=== PATIENT | male | born 1965 | race Two or more races ===

== ENCOUNTER 2018-07-06 03:16 | Inpatient (IN) | payer MEDICAID ==
[2018-07-06] VITALS (7 sets, daily range): BP systolic 102–169; BP diastolic 58–90
[~2018-07-06] VITALS: Ht 170.2 cm; Wt 127.2 kg
--- NOTE | 2018-07-06 03:24 | Emergency Room Report ---
History of Present Illness General Chief Complaint: Abdominal Pain Source: Patient Present Illness HPI Is a 52-year-old male with history of cholecystectomy last year. He presents with chief complaint of abdominal pain started yesterday. Worsen this morning. Has nausea and vomiting. No diarrhea. Pain is 9 out of 10. Worse with movement. Better with rest. Vomiting is nonbloody nonbilious. No fever chills. Pain is diffuse in nature and left-sided. Radiate to the back. Nothing made it better. Movement made it worse. No hematuria. Allergies: Coded Allergies: No Known Allergies (Unverified , 07/06/18) Patient History Past Medical History: none, see triage record, old chart reviewed Past Surgical History: joseph Pertinent Family History: none Social History: Denies: smoking Immunizations: other Reviewed Nursing Documentation: PMH: Agreed; PSxH: Agreed Review of Systems Eye: Denies: eye pain, blurred vision ENT: Denies: ear pain, nose congestion, throat swelling Respiratory: Denies: cough, shortness of breath Cardiovascular: Denies: chest pain, palpitations Gastrointestinal: Reports: abdominal pain, nausea, vomiting; Denies: diarrhea Musculoskeletal: Denies: back pain, joint pain Skin: Denies: rash Neurological: Denies: headache, numbness Endocrine: Denies: increased thirst, increased urine Hematologic/Lymphatic: Denies: easy bruising All Other Systems: negative except mentioned in HPI Physical Exam Vital Signs Date Time Temp Pulse Resp B/P (MAP) Pulse Ox O2 Delivery O2 Flow Rate FiO2 07/06/18 03:18 98.4 77 18 169/87 97 Room Air vitals with high blood pressure Sp02 EP Interpretation: reviewed, normal General Appearance: well appearing, no apparent distress, alert Head: normocephalic, atraumatic Eyes: bilateral eye PERRL, bilateral eye EOMI ENT: hearing grossly normal, normal pharynx Neck: full range of motion, supple, no meningismus Respiratory: chest non-tender, lungs clear, normal breath sounds Cardiovascular #1: regular rate, rhythm, no murmur Gastrointestinal: normal bowel sounds, no mass, no organomegaly, no bruit, non- distended, tenderness - Diffuse tenderness, other - Large cholecystectomy scar Musculoskeletal: back normal, gait/station normal, normal range of motion Psychiatric: mood/affect normal Skin: warm/dry Medical Decision Making Diagnostic Impression: Primary Impression: Pancreatitis Qualified Codes: K85.10 - Biliary acute pancreatitis without necrosis or infection Additional Impression: Choledocholithiasis with obstruction Qualified Codes: K80.51 - Calculus of bile duct without cholangitis or cholecystitis with obstruction ER Course Patient presents with abdominal pain and has acute choledocholithiasis with obstruction and acute pancreatitis. Pain is well-controlled. No evidence of necrotizing pancreatitis. No abdominal obstruction or acute abdomen. We'll admit for IV hydration and pain control. I discussed case with Dr. Stevenson who will be admitting for Dr. Dunne. Dr. Milian, surgeon, also consulted. Lab Results Impression Labs with elevated bilirubin, liver enzyme and lipase. CT/MRI/US Diagnostic Results CT/MRI/US Diagnostic Results : Imaging Test Ordered: CT abdomen and pelvis Impression Read by radiologist. Cholecystectomy. Density in the distal common bowel duct suspicious for choledocholithiasis. Last Vital Signs Date Time Temp Pulse Resp B/P (MAP) Pulse Ox O2 Delivery O2 Flow Rate FiO2 07/06/18 03:18 98.4 77 18 169/87 97 Room Air Status: improved Disposition: ADMITTED INPATIENT Condition: Serious Scripts No Active Prescriptions or Reported Meds Elijah Jarrell MD Jul 06, 2018 03:24
[2018-07-06] MEDS ORDERED: Morphine Sulfate 4mg/ml Inj (IV/IM USE ONLY) IVP ONE ×2 (03:30→04:15)
[2018-07-06 03:48] LABS: APPEARANCE,URINE CLEAR; BILIRUBIN, URINE NEGATIVE (NEGATIVE); GLUCOSE, URINE (UA) NEGATIVE (NEGATIVE); KETONES,URINE NEGATIVE (NEGATIVE); LEUKOCYTE ESTERASE ,URINE NEGATIVE (NEGATIVE); NITRITE,URINE NEGATIVE (NEGATIVE); PH,URINE 6 (4.5-8.0); PROTEIN,URINE NEGATIVE (NEGATIVE); UROBILINOGEN,URINE 1 MG/DL (0.0-1.0)
[2018-07-06 03:49] LABS: COLOR,URINE YELLOW
[2018-07-06 03:54] LABS: BASOPHILS % (AUTO) 1.1 % (0.0-2.0); EOSINOPHILS % (AUTO) 0.5 % (0.0-3.0); HEMOGLOBIN 17.6 G/DL (14.2-18.0); LYMPHOCYTES % (AUTO) 9.8 % (20.0-45.0); MEAN CORPUSCULAR VOLUME 91 FL (80-99); MONOCYTES % (AUTO) 4.9 % (1.0-10.0); NEUTROPHILS % (AUTO) 83.7 % (45.0-75.0); PLATELET COUNT 131 K/UL (150-450); RED BLOOD COUNT 5.59 M/UL (4.70-6.10); RED CELL DISTRIBUTION WIDTH 11.7 % (11.6-14.8); WHITE BLOOD COUNT 8.1 K/UL (4.8-10.8)
[2018-07-06 03:59] LABS: ANION GAP 10 mmol/L (5-15); BLOOD UREA NITROGEN 19 mg/dL (7-18); CALCIUM 9.1 MG/DL (8.5-10.1); CARBON DIOXIDE 26 MMOL/L (21-32); CHLORIDE 103 MMOL/L (98-107); CREATININE 1.2 MG/DL (0.55-1.30); POTASSIUM 3.9 MMOL/L (3.5-5.1); SODIUM 139 MMOL/L (136-145)
[2018-07-06 04:09] LABS: ALANINE AMINOTRANSFERASE 498 U/L (12-78); ALBUMIN 3.6 G/DL (3.4-5.0); ALBUMIN/GLOBULIN RATIO 0.7 (1.0-2.7); ALKALINE PHOSPHATASE 274 U/L (46-116); ASPARTATE AMINO TRANSFERASE 311 U/L (15-37); BILIRUBIN,TOTAL 3.3 MG/DL (0.2-1.0)
[2018-07-06 04:13] LABS: BILIRUBIN,DIRECT 2.2 MG/DL (0.0-0.3)
[2018-07-06] MEDS ORDERED: NKM (05:31)
[2018-07-06] MEDS: Morphine Sulfate 4mg/ml Inj (IV/IM USE ONLY) IVP PRN ×2 (06:54→15:06)
[2018-07-06] MEDS: cefTRIAXone 1 GM in D5W 55 ML IVPB SCH (08:55)
[2018-07-06] MEDS ORDERED: Tubing IV Secondary IV ONE (10:34)
--- NOTE | 2018-07-06 11:19 | History and Physical ---
History of Present Illness General Date patient seen: Jul 06, 2018 Time patient seen: 08:52 Reason for Hospitalization: Abdominal Pain Present Illness HPI 52 yo male with h/o cholecystectomy in the past presents with 2 days of worsening abdominal pain. Denies any fevers/chills, admits to nausea but no vomiting or diarrhea/constipation. Patient states he has had a cholecystectomy in the past. states the pain is all over his abdomen. Denies drinking alcohol, smoking, or any drug use. Denies any other medical conditions, denies any home medications Dr. Milian was consulted by ED overnight. Allergies: Coded Allergies: No Known Allergies (Unverified , 07/06/18) Medication History Scheduled No Known Medications* (NKM - No Known Medications*), 0 ., (Reported) Patient History History Provided By: Patient Healthcare decision maker Resuscitation status Full Code Advanced Directive on File Past Medical/Surgical History Past Medical/Surgical History: (1) Hx of cholecystectomy Social History Social History: (1) Non-smoker Review of Systems Constitutional: Reports: weakness; Denies: no symptoms, see HPI, chills, sweats , fever, malaise, other Eye: Denies: no symptoms, see HPI, eye pain, blurred vision, tearing, double vision, nose pain, nose congestion, acuity changes, discharge, other ENT: Denies: no symptoms, see HPI, ear pain, ear discharge, nose pain, nose congestion, throat pain, throat swelling, mouth pain, hearing loss, nasal discharge, other Respiratory: Denies: no symptoms, see HPI, cough, orthopnea, shortness of breath, stridor, wheezing, ADAMS, sputum, other Cardiovascular: Denies: no symptoms, see HPI, chest pain, edema, palpitations, syncope, PND, other Gastrointestinal: Reports: abdominal pain, nausea; Denies: no symptoms, see HPI , constipation, diarrhea, vomiting, melena, hematemesis, other Genitourinary: Denies: no symptoms, see HPI, discharge, dysuria, frequency, hematuria, pain, retention, incontinence, urgency, vag bleed/dc, other Musculoskeletal: Denies: no symptoms, see HPI, back pain, gout, joint pain, joint swelling, muscle pain, muscle stiffness, other Skin: Denies: no symptoms, see HPI, rash, change in color, change in hair/nails , dryness, lesions, other Psychiatric: Denies: no symptoms, see HPI, prior hx, anxiety, depressed feelings, emotional problems, SI, HI, hallucinations, other Neurological: Denies: no symptoms, see HPI, headache, numbness, paresthesia, seizure, tingling, tremors, focal weakness, syncope, dizziness, other Endocrine: Denies: no symptoms, see HPI, excessive sweating, flushing, intolerance to temperature, increased thirst, increased urine, unexplained weight loss, other Hematologic/Lymphatic: Denies: no symptoms, see HPI, anemia, blood clots, easy bleeding, easy bruising, swollen glands, diathesis, other Physical Exam General Appearance: alert, moderate distress HEENT: normocephalic, atraumatic, anicteric, mucous membranes moist, PERRL Neck: non-tender, normal alignment, supple, normal inspection Respiratory/Chest: chest wall non-tender, lungs clear, normal breath sounds, no respiratory distress, no accessory muscle use Cardiovascular/Chest: normal peripheral pulses, normal rate, regular rhythm Abdomen: normal bowel sounds, soft, tender - diffuse TTP Extremities: normal range of motion, non-tender, normal inspection, no calf tenderness, normal capillary refill Skin Exam: normal pigmentation, warm/dry Neurologic: wax pattern coater II-XII grossly normal, no motor/sensory deficits, alert, oriented x 3, responsive, normal mood/affect Last 24 Hour Vital Signs Date Time Temp Pulse Resp B/P (MAP) Pulse Ox O2 Delivery O2 Flow Rate FiO2 07/06/18 08:00 100.7 93 27 130/80 (97) 96 07/06/18 08:00 Room Air 07/06/18 05:33 Room Air 07/06/18 05:30 100.0 80 20 156/90 (112) 96 07/06/18 05:23 98.1 78 18 141/58 99 Room Air 78 07/06/18 05:21 98.2 18 141/58 99 Room Air 07/06/18 04:11 98.4 07/06/18 04:05 98.4 07/06/18 03:35 77 18 Room Air 99 07/06/18 03:35 98.4 18 169/87 99 Room Air 07/06/18 03:18 98.4 77 18 169/87 97 Room Air Intake and Output 07/05/18 07/06/18 19:00 07:00 Intake Total 2000 ml Balance 2000 ml Intake IV Total 2000 ml # Voids 1 Laboratory Tests Test 07/06/18 03:40 White Blood Count 8.1 K/UL (4.8-10.8) Red Blood Count 5.59 M/UL (4.70-6.10) Hemoglobin 17.6 G/DL (14.2-18.0) Hematocrit 51.0 % (42.0-52.0) Mean Corpuscular Volume 91 FL (80-99) Mean Corpuscular Hemoglobin 31.4 PG (27.0-31.0) H Mean Corpuscular Hemoglobin Concent 34.4 G/DL (32.0-36.0) Red Cell Distribution Width 11.7 % (11.6-14.8) Platelet Count 131 K/UL (150-450) L Mean Platelet Volume 9.3 FL (6.5-10.1) Neutrophils (%) (Auto) 83.7 % (45.0-75.0) H Lymphocytes (%) (Auto) 9.8 % (20.0-45.0) L Monocytes (%) (Auto) 4.9 % (1.0-10.0) Eosinophils (%) (Auto) 0.5 % (0.0-3.0) Basophils (%) (Auto) 1.1 % (0.0-2.0) Urine Color Yellow Urine Appearance Clear Urine pH 6 (4.5-8.0) Urine Specific [place] 1.010 (1.005-1.035) Urine Protein Negative (NEGATIVE) Urine Glucose (UA) Negative (NEGATIVE) Urine Ketones Negative (NEGATIVE) Urine Blood Negative (NEGATIVE) Urine Nitrite Negative (NEGATIVE) Urine Bilirubin Negative (NEGATIVE) Urine Urobilinogen 1 MG/DL (0.0-1.0) H Urine Leukocyte Esterase Negative (NEGATIVE) Sodium Level 139 MMOL/L (136-145) Potassium Level 3.9 MMOL/L (3.5-5.1) Chloride Level 103 MMOL/L (98-107) Carbon Dioxide Level 26 MMOL/L (21-32) Anion Gap 10 mmol/L (5-15) Blood Urea Nitrogen 19 mg/dL (7-18) H Creatinine 1.2 MG/DL (0.55-1.30) Estimat Glomerular Filtration Rate > 60 mL/min (>60) Glucose Level 97 MG/DL (74-106) Calcium Level 9.1 MG/DL (8.5-10.1) Total Bilirubin 3.3 MG/DL (0.2-1.0) H Direct Bilirubin 2.2 MG/DL (0.0-0.3) H Aspartate Amino Transf (AST/SGOT) 311 U/L (15-37) H Alanine Aminotransferase (ALT/SGPT) 498 U/L (12-78) H Alkaline Phosphatase 274 U/L (46-116) H Total Protein 8.6 G/DL (6.4-8.2) H Albumin 3.6 G/DL (3.4-5.0) Globulin 5.0 g/dL Albumin/Globulin Ratio 0.7 (1.0-2.7) L Lipase 7621 U/L (73-393) H Height (Feet): 5 Height (Inches): 7.00 Weight (Pounds): 286 Medications Current Medications Medications (Trade) Dose Ordered Sig/Marcel Route PRN Reason Start Time Stop Time Status Last Admin Dose Admin Ceftriaxone Sodium 1 gm/ Dextrose 55 ml @ 110 mls/hr Q24H IVPB 07/06/18 09:00 07/13/18 08:59 07/06/18 08:55 Morphine Sulfate (Morphine Sulfate) 2 mg Q6H PRN IVP Moderate Pain (Pain Scale 4-6) 07/06/18 05:45 07/13/18 05:44 Morphine Sulfate (Morphine Sulfate) 4 mg Q6H PRN IVP Severe Pain (Pain Scale 7-10) 07/06/18 05:45 07/13/18 05:44 07/06/18 06:54 Ondansetron HCl (Zofran) 4 mg Q6H PRN IVP Nausea & Vomiting 07/06/18 05:45 08/05/18 05:44 Sodium Chloride 1,000 ml @ 125 mls/hr Q8H IVLG 07/06/18 06:39 08/05/18 06:38 07/06/18 06:06 Assessment/Plan Problem List: (1) Intractable abdominal pain Assessment & Plan: due to obstructive pancreatitis CT imaging done, Density in the distal common bowel duct suspicious for choledocholithiasis. Dr. Milian with surgery consulted by ED, following, appreciate recs cont to monitor cmp pain control abx cftx ICD Codes: R10.9 - Unspecified abdominal pain SNOMED: 82600346, 122402662 (2) Pancreatitis Assessment & Plan: due to above cbd obstruction surgery following management per above ICD Codes: K85.90 - Acute pancreatitis without necrosis or infection, unspecified SNOMED: 95741262 Qualifiers: Qualified Codes: K85.10 - Biliary acute pancreatitis without necrosis or infection (3) Transaminitis Assessment & Plan: due to above ICD Codes: R74.0 - Nonspecific elevation of levels of transaminase and lactic acid dehydrogenase [LDH] SNOMED: 046140897, 121369525 (4) Choledocholithiasis with obstruction Assessment & Plan: surg consulted appreciate recs abx pain control npo ICD Codes: K80.51 - Calculus of bile duct without cholangitis or cholecystitis with obstruction SNOMED: 0847829 Qualifiers: Qualified Codes: K80.51 - Calculus of bile duct without cholangitis or cholecystitis with obstruction (5) Hx of cholecystectomy ICD Codes: Z90.49 - Acquired absence of other specified parts of digestive tract SNOMED: 03090755, 698912936 Status: stable Assessment/Plan ppx: scd diet: npo I have spent over 79 minutes regarding patient care and counseling and 35 minutes of face to face time with the patient. Gerri Cardenas MD Jul 06, 2018 11:19
--- NOTE | 2018-07-06 12:18 | Diagnostic Imaging Report ---
Indication: Right flank pain for 3 hours Technique: Spiral acquisitions obtained through the abdomen and pelvis. No oral or IV contrast utilized, per urinary stone protocol. Multiplanar reconstructions were generated. Total dose length product 1080 mGycm. CTDIvol(s) 19 mGy. Dose reduction achieved using automated exposure control Comparison: none Findings: Questionable tiny calyceal calculus versus artifact is seen expected region of a right upper pole renal calyx. No renal or ureteral calculi otherwise. No hydronephrosis or hydroureter. Lack of IV contrast limits assessment of the renal parenchyma. Tiny hyperdense subcentimeter lesion is seen at the left upper pole periphery. No other evidence of renal mass or cyst demonstrated. Lack of IV contrast limits assessment of the other solid organs. The gallbladder is absent, presumably postsurgically. There is mild dilatation of the extrahepatic bile ducts, common bile duct measuring up to 10 mm diameter. 2 calculi are seen in the downstream common bile duct at the level of the ampulla, each measuring about 8 mm in diameter. No intrahepatic biliary ductal dilatation. No focal liver lesion demonstrated. There are borderline enlarged peripancreatic lymph nodes, measuring up to 2.6 cm long axis dimension. The pancreas itself, spleen, adrenals are all unremarkable. No retroperitoneal or mesenteric mass or adenopathy. No pelvic mass or adenopathy. The appendix is normal. There are questionably small colonic diverticula. No evidence of diverticulitis. No small bowel distention. No free or loculated intraperitoneal gas or fluid is demonstrated. There is a borderline broad-based hernia in the right upper quadrant at the site of what was probably a laparoscopy port. Distal esophagus, stomach, duodenum are unremarkable. The included lung bases demonstrate groundglass opacity probably representing compressive atelectatic change, mild congestive change, or combination of both. The heart is borderline enlarged. The bones demonstrate degenerative spondylosis changes Impression: Evidence of choledocholithiasis with mild extrahepatic biliary ductal dilatation Prior cholecystectomy Borderline peripancreatic lymphadenopathy, nonspecific as regards etiology Basilar pulmonary parenchymal groundglass opacity, likely combination of compressive atelectatic changes and mild congestion Borderline cardiomegaly Negative for evidence of urinary stone disease or obstructive uropathy Tiny hyperdense subcentimeter left upper pole periphery lesion is too small to characterize, but suspect represents a proteinaceous cysts. No further follow-up necessary This agrees with the preliminary interpretation provided overnight by [facility] teleradiology service. The CT scanner at [facility] is accredited by the [employer] and the scans are performed using protocols designed to limit radiation exposure to as low as reasonably achievable to attain images of sufficient resolution adequate for diagnostic evaluation.
--- NOTE | 2018-07-06 12:29 | Consultation ---
Consult Note Consult Note HEMATOLOGY-ONCOLOGY CONSULTATION REFERRING MD: Rajwinder Dunne REASON FOR CONSULT: Thrombocytopenia DATE OF CONSULT: 07/06/2018 HPI: 52 yo male with h/o cholecystectomy in the past presents with 2 days of worsening abdominal pain. Denies any fevers/chills, admits to nausea but no vomiting or diarrhea/constipation. Patient states he has had a cholecystectomy in the past. states the pain is all over his abdomen. Denies drinking alcohol, smoking, or any drug use. Denies any other medical conditions, denies any home medications Dr. Milian was consulted by ED overnight. Hematology services consulted for the evaluation of thrombocytopenia. Labs have been reviewed. Serology and US abd ordered. Allergies: Coded Allergies: No Known Allergies (Unverified , 07/06/18) Medication History Scheduled No Known Medications* (NKM - No Known Medications*), 0 ., (Reported) Patient History History Provided By: Patient Healthcare decision maker Resuscitation status Full Code Advanced Directive on File Past Medical/Surgical History Past Medical/Surgical History: (1) Hx of cholecystectomy Social History Social History: (1) Non-smoker Review of Systems Constitutional: Reports: weakness; Denies: no symptoms, see HPI, chills, sweats , fever, malaise, other Eye: Denies: no symptoms, see HPI, eye pain, blurred vision, tearing, double vision, nose pain, nose congestion, acuity changes, discharge, other ENT: Denies: no symptoms, see HPI, ear pain, ear discharge, nose pain, nose congestion, throat pain, throat swelling, mouth pain, hearing loss, nasal discharge, other Respiratory: Denies: no symptoms, see HPI, cough, orthopnea, shortness of breath, stridor, wheezing, ADAMS, sputum, other Cardiovascular: Denies: no symptoms, see HPI, chest pain, edema, palpitations, syncope, PND, other Gastrointestinal: Reports: abdominal pain, nausea; Denies: no symptoms, see HPI , constipation, diarrhea, vomiting, melena, hematemesis, other Genitourinary: Denies: no symptoms, see HPI, discharge, dysuria, frequency, hematuria, pain, retention, incontinence, urgency, vag bleed/dc, other Musculoskeletal: Denies: no symptoms, see HPI, back pain, gout, joint pain, joint swelling, muscle pain, muscle stiffness, other Skin: Denies: no symptoms, see HPI, rash, change in color, change in hair/nails , dryness, lesions, other Psychiatric: Denies: no symptoms, see HPI, prior hx, anxiety, depressed feelings, emotional problems, SI, HI, hallucinations, other Neurological: Denies: no symptoms, see HPI, headache, numbness, paresthesia, seizure, tingling, tremors, focal weakness, syncope, dizziness, other Endocrine: Denies: no symptoms, see HPI, excessive sweating, flushing, intolerance to temperature, increased thirst, increased urine, unexplained weight loss, other Hematologic/Lymphatic: Denies: no symptoms, see HPI, anemia, blood clots, easy bleeding, easy bruising, swollen glands, diathesis, other Physical Exam General Appearance: alert, moderate distress HEENT: normocephalic, atraumatic, anicteric, mucous membranes moist, PERRL Neck: non-tender, normal alignment, supple, normal inspection Respiratory/Chest: chest wall non-tender, lungs clear, normal breath sounds, no respiratory distress, no accessory muscle use Cardiovascular/Chest: normal peripheral pulses, normal rate, regular rhythm Abdomen: normal bowel sounds, soft, tender - diffuse TTP Extremities: normal range of motion, non-tender, normal inspection, no calf tenderness, normal capillary refill Skin Exam: normal pigmentation, warm/dry Neurologic: continuous pillowcase cutter II-XII grossly normal, no motor/sensory deficits, alert, oriented x 3, responsive, normal mood/affect Last 24 Hour Vital Signs Date Time Temp Pulse Resp B/P (MAP) Pulse Ox O2 Delivery O2 Flow Rate FiO2 07/06/18 08:00 100.7 93 27 130/80 (97) 96 07/06/18 08:00 Room Air 07/06/18 05:33 Room Air 07/06/18 05:30 100.0 80 20 156/90 (112) 96 07/06/18 05:23 98.1 78 18 141/58 99 Room Air 78 07/06/18 05:21 98.2 18 141/58 99 Room Air 07/06/18 04:11 98.4 07/06/18 04:05 98.4 07/06/18 03:35 77 18 Room Air 99 07/06/18 03:35 98.4 18 169/87 99 Room Air 07/06/18 03:18 98.4 77 18 169/87 97 Room Air Intake and Output 07/05/18 07/06/18 19:00 07:00 Intake Total 2000 ml Balance 2000 ml Intake IV Total 2000 ml # Voids 1 Laboratory Tests Test 07/06/18 03:40 White Blood Count 8.1 K/UL (4.8-10.8) Red Blood Count 5.59 M/UL (4.70-6.10) Hemoglobin 17.6 G/DL (14.2-18.0) Hematocrit 51.0 % (42.0-52.0) Mean Corpuscular Volume 91 FL (80-99) Mean Corpuscular Hemoglobin 31.4 PG (27.0-31.0) H Mean Corpuscular Hemoglobin Concent 34.4 G/DL (32.0-36.0) Red Cell Distribution Width 11.7 % (11.6-14.8) Platelet Count 131 K/UL (150-450) L Mean Platelet Volume 9.3 FL (6.5-10.1) Neutrophils (%) (Auto) 83.7 % (45.0-75.0) H Lymphocytes (%) (Auto) 9.8 % (20.0-45.0) L Monocytes (%) (Auto) 4.9 % (1.0-10.0) Eosinophils (%) (Auto) 0.5 % (0.0-3.0) Basophils (%) (Auto) 1.1 % (0.0-2.0) Urine Color Yellow Urine Appearance Clear Urine pH 6 (4.5-8.0) Urine Specific [place] 1.010 (1.005-1.035) Urine Protein Negative (NEGATIVE) Urine Glucose (UA) Negative (NEGATIVE) Urine Ketones Negative (NEGATIVE) Urine Blood Negative (NEGATIVE) Urine Nitrite Negative (NEGATIVE) Urine Bilirubin Negative (NEGATIVE) Urine Urobilinogen 1 MG/DL (0.0-1.0) H Urine Leukocyte Esterase Negative (NEGATIVE) Sodium Level 139 MMOL/L (136-145) Potassium Level 3.9 MMOL/L (3.5-5.1) Chloride Level 103 MMOL/L (98-107) Carbon Dioxide Level 26 MMOL/L (21-32) Anion Gap 10 mmol/L (5-15) Blood Urea Nitrogen 19 mg/dL (7-18) H Creatinine 1.2 MG/DL (0.55-1.30) Estimat Glomerular Filtration Rate > 60 mL/min (>60) Glucose Level 97 MG/DL (74-106) Calcium Level 9.1 MG/DL (8.5-10.1) Total Bilirubin 3.3 MG/DL (0.2-1.0) H Direct Bilirubin 2.2 MG/DL (0.0-0.3) H Aspartate Amino Transf (AST/SGOT) 311 U/L (15-37) H Alanine Aminotransferase (ALT/SGPT) 498 U/L (12-78) H Alkaline Phosphatase 274 U/L (46-116) H Total Protein 8.6 G/DL (6.4-8.2) H Albumin 3.6 G/DL (3.4-5.0) Globulin 5.0 g/dL Albumin/Globulin Ratio 0.7 (1.0-2.7) L Lipase 7621 U/L (73-393) H Height (Feet): 5 Height (Inches): 7.00 Weight (Pounds): 286 Medications Current Medications Medications (Trade) Dose Ordered Sig/Marcel Route PRN Reason Start Time Stop Time Status Last Admin Dose Admin Ceftriaxone Sodium 1 gm/ Dextrose 55 ml @ 110 mls/hr Q24H IVPB 07/06/18 09:00 07/13/18 08:59 07/06/18 08:55 Morphine Sulfate (Morphine Sulfate) 2 mg Q6H PRN IVP Moderate Pain (Pain Scale 4-6) 07/06/18 05:45 07/13/18 05:44 Morphine Sulfate (Morphine Sulfate) 4 mg Q6H PRN IVP Severe Pain (Pain Scale 7-10) 07/06/18 05:45 07/13/18 05:44 07/06/18 06:54 Ondansetron HCl (Zofran) 4 mg Q6H PRN IVP Nausea & Vomiting 07/06/18 05:45 08/05/18 05:44 Sodium Chloride 1,000 ml @ 125 mls/hr Q8H IVLG 07/06/18 06:39 08/05/18 06:38 07/06/18 06:06 ASSESSMENT AND RECOMMENDATIONS # Thrombocytopenia. Potential causes multifactorial, evaluate liver and viral etiologies to begin. Could also be related to underlying meds pt has received. --> Peripheral smear ordered to evaluate for blasts/schistocytes --> Hep panel and HIV ordered --> US abd to evaluate for cirrhosis and hsm ordered --> Meds have been reviewed --> Ok for ppx if plt count >50k with either heparin or lovenox --> Transfuse if plt <20k with fever, or if plt ,10k without fever. # Abd pain. Due to obstructive pancreatitis --> CT imaging done, Density in the distal common bowel duct suspicious for choledocholithiasis. --> Dr. Milian with surgery consulted by ED, following, appreciate recs --> cont to monitor cmp --> pain control # Pancreatitis. Due to above cbd obstruction --> surgery following --> management per above # Transaminitis. Due to above Calculus of bile duct without cholangitis or cholecystitis with obstruction # H/O cholecystectomy. GREATLY APPRECIATE CONSULTATION. Santy Chakraborty MD Jul 06, 2018 12:28
--- NOTE | 2018-07-06 14:09 | Diagnostic Imaging Report ---
Indication: Abdominal pain, history of cholecystectomy, abnormal liver function tests, abnormal lipase Technique: Peres-scale and duplex images of the upper abdomen were obtained Comparison: Reference made to abdomen pelvis CT of earlier the same day Findings: Exam is limited by patient body habitus and overlying bowel gas Gallbladder is surgically absent. Common bile duct measures 4 mm in diameter. No intrahepatic biliary ductal dilatation. Liver demonstrates diffusely increased echogenicity, consistent with diffuse hepatocellular disease, most likely fatty change no focal abnormality. No surface nodularity. Portal vein and hepatic veins are patent. Pancreas is unremarkable. Spleen is unremarkable. Left kidney measures 12.1 cm in length. Right kidney measures 12.7 cm length. Both kidneys demonstrate normal echogenicity. There is no hydronephrosis. No focal abnormality . Non-aneurysmal abdominal aorta . Impression: Surgically absent gallbladder Negative for dilated ducts. Note that biliary ductal dilatation described on recent CT scan is not evident sonographically Somewhat limited exam, as described Liver demonstrates diffusely increased echogenicity, consistent with diffuse hepatocellular disease, most likely fatty change.
--- NOTE | 2018-07-06 14:16 | Consultation ---
History of Present Illness General Date patient seen: Jul 06, 2018 Chief Complaint: Abdominal Pain Present Illness HPI 52 yo male with history of cholecystitis s/p cholecystectomy in the past presents with 2 days of worsening abdominal pain. Denies any fevers/chills, admits to nausea but no vomiting or diarrhea/constipation. Patient states he has had a cholecystectomy in the past. states the pain is all over his abdomen. Denies drinking alcohol, smoking, or any drug use. Denies any other medical conditions, denies any home medications. CT with possible CBD stone. labs with elevated LFTs concerning for choledocholithiasis. lipase elevated. Surgery called to evaluate. patient seen, chart reviewed, patient examined. Allergies: Coded Allergies: No Known Allergies (Unverified , 07/06/18) Medication History Scheduled No Known Medications* (NKM - No Known Medications*), 0 ., (Reported) Patient History History Provided By: Patient, Medical Record, PMD Healthcare decision maker Resuscitation status Full Code Advanced Directive on File Past Medical/Surgical History Past Medical/Surgical History: (1) Pancreatitis (2) Choledocholithiasis with obstruction (3) Transaminitis (4) Intractable abdominal pain Review of Systems All Other Systems: negative except mentioned in HPI Physical Exam General Appearance: no apparent distress, alert Lines, tubes and drains: peripheral HEENT: normocephalic, atraumatic, mucous membranes moist Neck: normal inspection Respiratory/Chest: normal breath sounds, no respiratory distress Cardiovascular/Chest: normal rate, regular rhythm Abdomen: normal bowel sounds, soft, no organomegaly, no mass, distended, tender Extremities: normal inspection, other Skin Exam: warm/dry Neurologic: alert, oriented x 3 Last 24 Hour Vital Signs Date Time Temp Pulse Resp B/P (MAP) Pulse Ox O2 Delivery O2 Flow Rate FiO2 07/06/18 12:00 99.5 89 19 114/70 (85) 94 07/06/18 08:00 100.7 93 27 130/80 (97) 96 07/06/18 08:00 Room Air 07/06/18 05:33 Room Air 07/06/18 05:30 100.0 80 20 156/90 (112) 96 07/06/18 05:23 98.1 78 18 141/58 99 Room Air 78 07/06/18 05:21 98.2 18 141/58 99 Room Air 07/06/18 04:11 98.4 07/06/18 04:05 98.4 07/06/18 03:35 77 18 Room Air 99 07/06/18 03:35 98.4 99 Room Air 07/06/18 03:18 98.4 77 18 97 Room Air Intake and Output 07/05/18 07/06/18 19:00 07:00 Intake Total 2000 ml Balance 2000 ml Intake IV Total 2000 ml # Voids 1 Laboratory Tests Test 07/06/18 03:40 White Blood Count 8.1 K/UL (4.8-10.8) Red Blood Count 5.59 M/UL (4.70-6.10) Hemoglobin 17.6 G/DL (14.2-18.0) Hematocrit 51.0 % (42.0-52.0) Mean Corpuscular Volume 91 FL (80-99) Mean Corpuscular Hemoglobin 31.4 PG (27.0-31.0) H Mean Corpuscular Hemoglobin Concent 34.4 G/DL (32.0-36.0) Red Cell Distribution Width 11.7 % (11.6-14.8) Platelet Count 131 K/UL (150-450) L Mean Platelet Volume 9.3 FL (6.5-10.1) Neutrophils (%) (Auto) 83.7 % (45.0-75.0) H Lymphocytes (%) (Auto) 9.8 % (20.0-45.0) L Monocytes (%) (Auto) 4.9 % (1.0-10.0) Eosinophils (%) (Auto) 0.5 % (0.0-3.0) Basophils (%) (Auto) 1.1 % (0.0-2.0) Urine Color Yellow Urine Appearance Clear Urine pH 6 (4.5-8.0) Urine Specific [place] 1.010 (1.005-1.035) Urine Protein Negative (NEGATIVE) Urine Glucose (UA) Negative (NEGATIVE) Urine Ketones Negative (NEGATIVE) Urine Blood Negative (NEGATIVE) Urine Nitrite Negative (NEGATIVE) Urine Bilirubin Negative (NEGATIVE) Urine Urobilinogen 1 MG/DL (0.0-1.0) H Urine Leukocyte Esterase Negative (NEGATIVE) Sodium Level 139 MMOL/L (136-145) Potassium Level 3.9 MMOL/L (3.5-5.1) Chloride Level 103 MMOL/L (98-107) Carbon Dioxide Level 26 MMOL/L (21-32) Anion Gap 10 mmol/L (5-15) Blood Urea Nitrogen 19 mg/dL (7-18) H Creatinine 1.2 MG/DL (0.55-1.30) Estimat Glomerular Filtration Rate > 60 mL/min (>60) Glucose Level 97 MG/DL (74-106) Calcium Level 9.1 MG/DL (8.5-10.1) Total Bilirubin 3.3 MG/DL (0.2-1.0) H Direct Bilirubin 2.2 MG/DL (0.0-0.3) H Aspartate Amino Transf (AST/SGOT) 311 U/L (15-37) H Alanine Aminotransferase (ALT/SGPT) 498 U/L (12-78) H Alkaline Phosphatase 274 U/L (46-116) H Total Protein 8.6 G/DL (6.4-8.2) H Albumin 3.6 G/DL (3.4-5.0) Globulin 5.0 g/dL Albumin/Globulin Ratio 0.7 (1.0-2.7) L Lipase 7621 U/L (73-393) H Height (Feet): 5 Height (Inches): 7.00 Weight (Pounds): 286 Medications Current Medications Medications (Trade) Dose Ordered Sig/Marcel Route PRN Reason Start Time Stop Time Status Last Admin Dose Admin Ceftriaxone Sodium 1 gm/ Dextrose 55 ml @ 110 mls/hr Q24H IVPB 07/06/18 09:00 07/13/18 08:59 07/06/18 08:55 Morphine Sulfate (Morphine Sulfate) 2 mg Q6H PRN IVP Moderate Pain (Pain Scale 4-6) 07/06/18 05:45 07/13/18 05:44 Morphine Sulfate (Morphine Sulfate) 4 mg Q6H PRN IVP Severe Pain (Pain Scale 7-10) 07/06/18 05:45 07/13/18 05:44 07/06/18 06:54 Ondansetron HCl (Zofran) 4 mg Q6H PRN IVP Nausea & Vomiting 07/06/18 05:45 08/05/18 05:44 Sodium Chloride 1,000 ml @ 125 mls/hr Q8H IVLG 07/06/18 06:39 08/05/18 06:38 07/06/18 06:06 Assessment/Plan Problem List: (1) Pancreatitis Assessment & Plan: likely related to possible cbd stone possible EtOH trend labs follow clinically ICD Codes: K85.90 - Acute pancreatitis without necrosis or infection, unspecified SNOMED: 96798089 Qualifiers: Qualified Codes: K85.10 - Biliary acute pancreatitis without necrosis or infection (2) Intractable abdominal pain Assessment & Plan: likely pancreatitis see above ICD Codes: R10.9 - Unspecified abdominal pain SNOMED: 78452061, 426194114 (3) Choledocholithiasis with obstruction Assessment & Plan: MRCP ordered pending results GI consult trend labs thanks. will follow with recs ICD Codes: K80.51 - Calculus of bile duct without cholangitis or cholecystitis with obstruction SNOMED: 4056467 Qualifiers: Qualified Codes: K80.51 - Calculus of bile duct without cholangitis or cholecystitis with obstruction Status: stable Khai Milian Jul 06, 2018 14:16
--- NOTE | 2018-07-06 16:17 | Diagnostic Imaging Report ---
Indication: Abdominal pain, choledocholithiasis on recent CT scan Technique: Coronal and axial single shot fast spin-echo breath-hold, axial T2 FRFSE, 2-D thick slab MRCP, AXIAL 2-D FIESTA fat saturated, axial 3-D dual echo breath-hold, water weighted axial LAVA FLEX, revealed 3-D MRCP images were obtained of the abdomen. MIP reconstructions were generated of the bile ducts Comparison: Reference made to abdomen and pelvic CT and abdomen ultrasound of earlier the same day Findings: The gallbladder is surgically absent polygonal 8mm filling defect is seen in the distal common bile duct lumen. There is also questionably a filling defect protruding into the duodenal lumen at the level of the ampulla, which measures 6 mm in diameter. Both of these correspond in size and location to the abnormality described on recent CT scan. These are visible as high signal foci on the LAVA FLEX images The common bile duct and common hepatic duct are dilated, measuring up to 12 mm in diameter. There is mild central intrahepatic biliary ductal dilatation. There is questionably narrowing of the origins of the right and left lobe intrahepatic ducts, however. The liver is unremarkable. The pancreas is unremarkable. Peripancreatic lymphadenopathy described on recent CT is more apparent on that exam. The spleen, adrenals, kidneys are unremarkable. Limited imaging of the pelvis is unremarkable. There are degenerative spondylosis changes. Impression: Positive for choledocholithiasis, with an 8 mm calculus within the distal common bile duct lumen, and a second likely impacted at the ampulla, protruding into the duodenal lumen. Dilated extrahepatic and central intrahepatic ducts, presumed secondary to the above Apparent narrowing of the origins of the right and left intrahepatic ducts. Suspect that this is just failure to dilate, but strictures are not excludable, and follow-up imaging after decompression of the common bile duct should be considered
[2018-07-07] VITALS: BP 100/67
[2018-07-07 04:00] VITALS: BP 112/60
[2018-07-07 07:46] LABS: BASOPHILS % (AUTO) 0.5 % (0.0-2.0); EOSINOPHILS % (AUTO) 0.6 % (0.0-3.0); HEMATOCRIT 42.7 % (42.0-52.0); HEMOGLOBIN 15.1 G/DL (14.2-18.0); LYMPHOCYTES % (AUTO) 9.6 % (20.0-45.0); MEAN CORPUSCULAR VOLUME 92 FL (80-99); MONOCYTES % (AUTO) 10.2 % (1.0-10.0); NEUTROPHILS % (AUTO) 79.1 % (45.0-75.0); PLATELET COUNT 111 K/UL (150-450); RED BLOOD COUNT 4.63 M/UL (4.70-6.10); RED CELL DISTRIBUTION WIDTH 11.6 % (11.6-14.8); WHITE BLOOD COUNT 10.2 K/UL (4.8-10.8)
[2018-07-07 08:08] LABS: ALANINE AMINOTRANSFERASE 251 U/L (12-78); ALBUMIN 2.5 G/DL (3.4-5.0); ALBUMIN/GLOBULIN RATIO 0.6 (1.0-2.7); ALKALINE PHOSPHATASE 171 U/L (46-116); ANION GAP 8 mmol/L (5-15); ASPARTATE AMINO TRANSFERASE 99 U/L (15-37); BILIRUBIN,TOTAL 7.5 MG/DL (0.2-1.0); BLOOD UREA NITROGEN 20 mg/dL (7-18); CALCIUM 8.1 MG/DL (8.5-10.1); CARBON DIOXIDE 25 MMOL/L (21-32); CHLORIDE 107 MMOL/L (98-107); CREATININE 1.1 MG/DL (0.55-1.30); POTASSIUM 3.5 MMOL/L (3.5-5.1); SODIUM 140 MMOL/L (136-145)
[2018-07-07 08:10] LABS: BILIRUBIN,DIRECT 0.2 MG/DL (0.0-0.3)
[2018-07-07] MEDS: cefTRIAXone 1 GM in D5W 55 ML IVPB SCH (08:17)
--- NOTE | 2018-07-07 08:32 | General Surgery Progress Note ---
General Surgery-Progress Note Subjective Additional Comments MRCP with impacted CBD stone Objective Last 24 Hour Vital Signs Date Time Temp Pulse Resp B/P (MAP) Pulse Ox O2 Delivery O2 Flow Rate FiO2 07/07/18 04:00 98.4 71 20 112/60 (77) 94 07/07/18 00:00 98.1 74 17 100/67 (78) 95 07/06/18 21:00 Room Air 07/06/18 20:00 98.5 84 16 102/65 (77) 93 07/06/18 15:51 98.9 88 19 153/69 (97) 95 07/06/18 12:00 99.5 89 19 114/70 (85) 94 I&O Intake and Output 07/06/18 07/07/18 18:59 06:59 Intake Total 1180 ml 1500 ml Output Total 1450 ml Balance -270 ml 1500 ml Intake IV Total 1180 ml 1500 ml Output Urine Total 1450 ml # Voids 1 Cardiovascular: RSR Respiratory: clear Abdomen: soft, flat, non-tender, present bowel sounds Extremities: no tenderness, no cyanosis Laboratory Tests Test 07/06/18 13:50 07/06/18 21:26 07/07/18 06:00 HIV (1&2) Antibody Rapid Negative (NEGATIVE) Hepatitis A IgM Antibody Pending Hepatitis B Surface Antigen Pending Hepatitis B Core IgM Antibody Pending Hepatitis C Antibody Pending White Blood Count 10.2 K/UL (4.8-10.8) Red Blood Count 4.63 M/UL (4.70-6.10) L Hemoglobin 15.1 G/DL (14.2-18.0) Hematocrit 42.7 % (42.0-52.0) Mean Corpuscular Volume 92 FL (80-99) Mean Corpuscular Hemoglobin 32.6 PG (27.0-31.0) H Mean Corpuscular Hemoglobin Concent 35.3 G/DL (32.0-36.0) Red Cell Distribution Width 11.6 % (11.6-14.8) Platelet Count 111 K/UL (150-450) L Mean Platelet Volume 10.8 FL (6.5-10.1) H Neutrophils (%) (Auto) 79.1 % (45.0-75.0) H Lymphocytes (%) (Auto) 9.6 % (20.0-45.0) L Monocytes (%) (Auto) 10.2 % (1.0-10.0) H Eosinophils (%) (Auto) 0.6 % (0.0-3.0) Basophils (%) (Auto) 0.5 % (0.0-2.0) Sodium Level 140 MMOL/L (136-145) Potassium Level 3.5 MMOL/L (3.5-5.1) Chloride Level 107 MMOL/L (98-107) Carbon Dioxide Level 25 MMOL/L (21-32) Anion Gap 8 mmol/L (5-15) Blood Urea Nitrogen 20 mg/dL (7-18) H Creatinine 1.1 MG/DL (0.55-1.30) Estimat Glomerular Filtration Rate > 60 mL/min (>60) Glucose Level 81 MG/DL (74-106) Calcium Level 8.1 MG/DL (8.5-10.1) L Total Bilirubin 7.5 MG/DL (0.2-1.0) H Direct Bilirubin 0.2 MG/DL (0.0-0.3) Aspartate Amino Transf (AST/SGOT) 99 U/L (15-37) H Alanine Aminotransferase (ALT/SGPT) 251 U/L (12-78) H Alkaline Phosphatase 171 U/L (46-116) H Total Protein 6.6 G/DL (6.4-8.2) Albumin 2.5 G/DL (3.4-5.0) L Globulin 4.1 g/dL Albumin/Globulin Ratio 0.6 (1.0-2.7) L Lipase 182 U/L (73-393) Plan Problems: (1) Pancreatitis Assessment & Plan: likely related to possible cbd stone possible EtOH trend labs lipase normal today. resolving follow clinically (2) Intractable abdominal pain Assessment & Plan: likely pancreatitis see above (3) Choledocholithiasis with obstruction Assessment & Plan: MRCP with 8mm impacted CBD distal stone at ampulla. GI to eval and consider ERCP labs noted. - trend labs thanks. will follow with Khai Nix Jul 07, 2018 08:32
[2018-07-07 08:40] VITALS: BP 144/69
[2018-07-07 10:09] LABS: INR 1.1 (0.9-1.1)
--- NOTE | 2018-07-07 11:36 | Diagnostic Imaging Report ---
Indication: Cough Technique: XRAY Chest 1v Comparison: None Findings: Limited exam with low lung volumes. Heart size within the upper limits for normal allowing for AP technique and low lung volumes. There is prominence of the pulmonary vascularity which may related to mild fluid overload/interstitial edema or may be partially exaggerated due to low lung volumes. No definite focal airspace consolidation. No silhouetting of the heart border diaphragms. Costophrenic sulci appear sharp. No pneumothorax. No acute osseous abnormality. Surgical clips noted in the right upper quadrant. No acute osseous abnormality. Impression: Apparent prominence/haziness of the pulmonary vascularity, finding which is likely exaggerated due to low lung volumes. The possibility of mild fluid overload/interstitial edema is not excluded. Correlate clinically. No definite focal airspace consolidation, pleural effusion or pneumothorax.
[2018-07-07 12:00] VITALS: BP 117/72
[2018-07-07] MEDS ORDERED: Morphine Sulfate 2mg/ml Inj IVP PRN (13:30)
[2018-07-07] MEDS: Morphine Sulfate 2mg/ml Inj IVP PRN (14:00)
--- NOTE | 2018-07-07 15:17 | General Progress Note ---
Assessment/Plan Problem List: (1) Intractable abdominal pain Assessment & Plan: due to obstructive pancreatitis, choledocholithiasis with obstruction mrcp reviewed, cbd obstruction appreciate surgery eval, GI consulted, plan for ercp cont to monitor cmp pain control abx cftx ICD Codes: R10.9 - Unspecified abdominal pain SNOMED: 80419428, 472561143 (2) Pancreatitis Assessment & Plan: due to above cbd obstruction surgery following management per above MRCP Reviewed, cbd obstruction noted plan for ERCP ICD Codes: K85.90 - Acute pancreatitis without necrosis or infection, unspecified SNOMED: 70437188 Qualifiers: Qualified Codes: K85.10 - Biliary acute pancreatitis without necrosis or infection (3) Choledocholithiasis with obstruction Assessment & Plan: surg consulted appreciate recs ERCP planned per GI abx pain control npo ICD Codes: K80.51 - Calculus of bile duct without cholangitis or cholecystitis with obstruction SNOMED: 9135939 Qualifiers: Qualified Codes: K80.51 - Calculus of bile duct without cholangitis or cholecystitis with obstruction (4) Transaminitis Assessment & Plan: due to above ICD Codes: R74.0 - Nonspecific elevation of levels of transaminase and lactic acid dehydrogenase [LDH] SNOMED: 598482064, 775611728 (5) Hx of cholecystectomy ICD Codes: Z90.49 - Acquired absence of other specified parts of digestive tract SNOMED: 29617620, 139269159 Status: stable, unchanged Assessment/Plan ppx: scd diet: npo I have spent over 64 minutes regarding patient care and counseling and 44 minutes of face to face time with the patient. Subjective Date patient seen: Jul 07, 2018 Allergies: Coded Allergies: No Known Allergies (Unverified , 07/06/18) Subjective f/u choledocholithiasis with obstruction, pancreatitis, intractable abd pain still having severe abd pain mild nausea, no vomiting denies any fevers/chills gen surg evaluated, discussed with me, states he consulted GI for ERCP ROS: 12 point ros reviewed, negative except for the above Objective Last 24 Hour Vital Signs Date Time Temp Pulse Resp B/P (MAP) Pulse Ox O2 Delivery O2 Flow Rate FiO2 07/07/18 12:00 98.2 64 21 117/72 (87) 95 07/07/18 09:00 Room Air 07/07/18 08:40 98.4 60 24 144/69 (94) 100 07/07/18 04:00 98.4 71 20 112/60 (77) 94 07/07/18 00:00 98.1 74 17 100/67 (78) 95 07/06/18 21:00 Room Air 07/06/18 20:00 98.5 84 16 102/65 (77) 93 07/06/18 15:51 98.9 88 19 153/69 (97) 95 Intake and Output 07/06/18 07/07/18 19:00 07:00 Intake Total 1305 ml 1375 ml Output Total 1450 ml Balance -145 ml 1375 ml Intake IV Total 1305 ml 1375 ml Output Urine Total 1450 ml # Voids 1 Laboratory Tests 07/06/18 21:26: Hepatitis A IgM Antibody [Pending], Hepatitis B Surface Antigen [Pending], Hepatitis B Core IgM Antibody [Pending], Hepatitis C Antibody [Pending] 07/07/18 06:00: White Blood Count 10.2, Red Blood Count 4.63L, Hemoglobin 15.1, Hematocrit 42.7 , Mean Corpuscular Volume 92, Mean Corpuscular Hemoglobin 32.6H, Mean Corpuscular Hemoglobin Concent 35.3, Red Cell Distribution Width 11.6, Platelet Count 111L, Mean Platelet Volume 10.8H, Neutrophils (%) (Auto) 79.1H, Lymphocytes (%) (Auto) 9.6L, Monocytes (%) (Auto) 10.2H, Eosinophils (%) (Auto) 0.6, Basophils (%) (Auto) 0.5, Sodium Level 140, Potassium Level 3.5, Chloride Level 107, Carbon Dioxide Level 25, Anion Gap 8, Blood Urea Nitrogen 20H, Creatinine 1.1, Estimat Glomerular Filtration Rate > 60, Glucose Level 81, Calcium Level 8.1L, Total Bilirubin 7.5H, Direct Bilirubin 0.2, Aspartate Amino Transf (AST/SGOT) 99H, Alanine Aminotransferase (ALT/SGPT) 251H, Alkaline Phosphatase 171H, Total Protein 6.6, Albumin 2.5L, Globulin 4.1, Albumin/ Globulin Ratio 0.6L, Lipase 182 07/07/18 09:30: Prothrombin Time 11.5, Prothromb Time International Ratio 1.1, Activated Partial Thromboplast Time 28 Height (Feet): 5 Height (Inches): 7.00 Weight (Pounds): 286 General Appearance: no apparent distress, alert EENT: PERRL/EOMI, normal ENT inspection, TMs normal, pharynx normal Neck: non-tender, normal alignment, supple, normal inspection, abnormal alignment Cardiovascular: normal peripheral pulses, normal rate, regular rhythm Respiratory/Chest: chest wall non-tender, lungs clear, normal breath sounds, no respiratory distress, no accessory muscle use Abdomen: normal bowel sounds, soft, no organomegaly, no mass, abnormal bowel sounds, tender - diffuse ttp Extremities: normal range of motion, non-tender, normal inspection, no calf tenderness Skin: normal pigmentation, warm/dry Gerri Cardenas MD Jul 07, 2018 15:17
--- NOTE | 2018-07-07 15:22 | GI Initial Consult Note ---
History of Present Illness General Date patient seen: Jul 07, 2018 Time patient seen: 15:16 Reason for Hospitalization: Abdominal Pain Referring physician: NIDIA Reason for Consultation: CHOLEDOCHOLITHASIS Present Illness HPI 52 yo male with history of cholecystitis s/p cholecystectomy in the past presents with 2 days of worsening abdominal pain. Denies any fevers/chills, admits to nausea but no vomiting or diarrhea/constipation. Patient states he has had a cholecystectomy in the past. states the pain is all over his abdomen. Denies drinking alcohol, smoking, or any drug use. Denies any other medical conditions, denies any home medications. CT with possible CBD stone. labs with elevated LFTs concerning for choledocholithiasis. lipase elevated. Surgery called to evaluate. patient seen, chart reviewed, patient examined. GI consulted for choledocholithiasis. Pt seen, awake A&Ox4 NAD c/o of severe RUQ pain. Currently NPO + IVFs. Noted on recent MRCP positive for choledocholithiasis, with an 8 mm calculus within the distal common bile duct lumen, and a second likely impacted at the ampulla, protruding into the duodenal lumen and dilated extrahepatic and central intrahepatic ducts. All labs reviewed. ERCP discussed with patient. Home Meds Reported Medications No Known Medications* (NKM - No Known Medications*) ., 0 ., 0 Refills 07/06/18 Med list reviewed/reconciled: Yes Allergies: Coded Allergies: No Known Allergies (Unverified , 07/06/18) Patient History History Provided By: Patient, Medical Record [facility] Narrative (1) Pancreatitis (2) Choledocholithiasis with obstruction (3) Transaminitis (4) Intractable abdominal pain Pertinent Family History: none Social History: Denies: smoking, alcohol use, drug use, other Review of Systems All Other Systems: negative except mentioned in HPI Physical Exam Vital Signs Date Time Temp Pulse Resp B/P (MAP) Pulse Ox O2 Delivery O2 Flow Rate FiO2 07/06/18 03:18 98.4 77 18 169/87 97 Room Air 07/06/18 03:35 99 Sp02 EP Interpretation: reviewed, normal Labs Laboratory Tests Test 07/06/18 21:26 07/07/18 06:00 07/07/18 09:30 Hepatitis A IgM Antibody Pending Hepatitis B Surface Antigen Pending Hepatitis B Core IgM Antibody Pending Hepatitis C Antibody Pending White Blood Count 10.2 K/UL (4.8-10.8) Red Blood Count 4.63 M/UL (4.70-6.10) L Hemoglobin 15.1 G/DL (14.2-18.0) Hematocrit 42.7 % (42.0-52.0) Mean Corpuscular Volume 92 FL (80-99) Mean Corpuscular Hemoglobin 32.6 PG (27.0-31.0) H Mean Corpuscular Hemoglobin Concent 35.3 G/DL (32.0-36.0) Red Cell Distribution Width 11.6 % (11.6-14.8) Platelet Count 111 K/UL (150-450) L Mean Platelet Volume 10.8 FL (6.5-10.1) H Neutrophils (%) (Auto) 79.1 % (45.0-75.0) H Lymphocytes (%) (Auto) 9.6 % (20.0-45.0) L Monocytes (%) (Auto) 10.2 % (1.0-10.0) H Eosinophils (%) (Auto) 0.6 % (0.0-3.0) Basophils (%) (Auto) 0.5 % (0.0-2.0) Sodium Level 140 MMOL/L (136-145) Potassium Level 3.5 MMOL/L (3.5-5.1) Chloride Level 107 MMOL/L (98-107) Carbon Dioxide Level 25 MMOL/L (21-32) Anion Gap 8 mmol/L (5-15) Blood Urea Nitrogen 20 mg/dL (7-18) H Creatinine 1.1 MG/DL (0.55-1.30) Estimat Glomerular Filtration Rate > 60 mL/min (>60) Glucose Level 81 MG/DL (74-106) Calcium Level 8.1 MG/DL (8.5-10.1) L Total Bilirubin 7.5 MG/DL (0.2-1.0) H Direct Bilirubin 0.2 MG/DL (0.0-0.3) Aspartate Amino Transf (AST/SGOT) 99 U/L (15-37) H Alanine Aminotransferase (ALT/SGPT) 251 U/L (12-78) H Alkaline Phosphatase 171 U/L (46-116) H Total Protein 6.6 G/DL (6.4-8.2) Albumin 2.5 G/DL (3.4-5.0) L Globulin 4.1 g/dL Albumin/Globulin Ratio 0.6 (1.0-2.7) L Lipase 182 U/L (73-393) Prothrombin Time 11.5 SEC (9.30-11.50) Prothromb Time International Ratio 1.1 (0.9-1.1) Activated Partial Thromboplast Time 28 SEC (23-33) General Appearance: well appearing, no apparent distress, alert Head: normocephalic EENT: PERRL/EOMI, normal ENT inspection Neck: supple Respiratory: normal breath sounds, no respiratory distress Cardiovascular: normal rate Gastrointestinal: normal inspection, non tender, soft, normal bowel sounds, non -distended Rectal: deferred Genitourinary: deferred Musculoskeletal: normal inspection, back normal Neurologic: normal inspection, alert, oriented x3, responsive Psychiatric: normal inspection, judgement/insight normal, memory normal Skin: normal inspection, normal color, no rash, warm/dry, palpation normal, well hydrated Lymphatic: normal inspection, no adenopathy Current Medications Current Medications Medications (Trade) Dose Ordered Sig/Marcel Route PRN Reason Start Time Stop Time Status Last Admin Dose Admin Ceftriaxone Sodium 1 gm/ Dextrose 55 ml @ 110 mls/hr Q24H IVPB 07/06/18 09:00 07/13/18 08:59 07/07/18 08:17 Morphine Sulfate (Morphine Sulfate) 1 mg Q4H PRN IVP Mild Pain (Pain Scale 1-3) 07/07/18 13:30 07/14/18 13:29 Morphine Sulfate (Morphine Sulfate) 2 mg Q6H PRN IVP Moderate Pain (Pain Scale 4-6) 07/06/18 05:45 07/13/18 05:44 07/07/18 14:00 Morphine Sulfate (Morphine Sulfate) 4 mg Q6H PRN IVP Severe Pain (Pain Scale 7-10) 07/06/18 05:45 07/13/18 05:44 07/06/18 15:06 Ondansetron HCl (Zofran) 4 mg Q6H PRN IVP Nausea & Vomiting 07/06/18 05:45 08/05/18 05:44 07/07/18 14:00 Sodium Chloride 1,000 ml @ 125 mls/hr Q8H IVLG 07/06/18 06:39 08/05/18 06:38 07/07/18 05:34 GI: Plan Problems: (1) Pancreatitis (2) Choledocholithiasis with obstruction (3) Transaminitis (4) Intractable abdominal pain (5) Hx of cholecystectomy Plan ERCP scheduled for tomorrow. - maintain NPO + IVFs symptomatic treatment will follow with additional recs post procedure Discussed with Dr. Crews. Thank you for this patient referral, we will follow. The patient was seen and examined at bedside and all new and available data was reviewed in the patients chart. I agree with the above findings, impression and plan. (Patient seen earlier today. Signature stamp does not reflect patient encounter time.). - [facility] Jul 07, 2018 15:22
[2018-07-07 16:00] VITALS: BP 145/89
[2018-07-07] MEDS: Morphine Sulfate 4mg/ml Inj (IV/IM USE ONLY) IVP PRN (18:50)
[2018-07-07 20:00] VITALS: BP 126/78
[2018-07-08] VITALS (10 sets, daily range): BP systolic 123–139; BP diastolic 62–90
[2018-07-08] MEDS: Morphine Sulfate 4mg/ml Inj (IV/IM USE ONLY) IVP PRN (04:27)
--- NOTE | 2018-07-08 06:07 | Anethesia Preoperative Eval ---
Anesthesia Pre-op PMH/ROS General Date of Evaluation: Jul 08, 2018 Time of Evaluation: 06:03 Anesthesiologist: hollie ASA Score: ASA 2 Mallampati Score Class I : Soft palate, uvula, fauces, pillars visible Class II: Soft palate, uvula, fauces visible Class III: Soft palate, base of uvula visible Class IV: Only hard plate visible Mallampati Classification: Class II Surgeon: alfa Diagnosis: pancreatitis, cbd stone Surgical Procedure: ercp Anesthesia History: none Social History: smoking - nonsmoker Family History: no anesthesia problems Allergies: Coded Allergies: No Known Allergies (Unverified , 07/06/18) Medications: see eMAR Patient NPO?: Yes NPO Date: Jul 08, 2018 NPO Time: 0000 Past Medical History Gastrointestinal/Genitourinary: Reports: other - pancreatitis, cbd stone, gallstones Other: obesity PSxH Narrative: cholecystectomy Anesthesia Pre-op Phys. Exam Physician Exam Last Vital Signs Date Time Temp Pulse Resp B/P (MAP) Pulse Ox O2 Delivery O2 Flow Rate FiO2 07/08/18 04:00 98.9 67 20 123/83 (96) 95 07/07/18 21:00 Room Air 07/06/18 03:35 99 Constitutional: NAD Neurologic: CN 2-12 intact Cardiovascular: RRR Respiratory: CTA Gastrointestinal: S/NT/ND Airway Exam Mallampati Score: Class II MO: full Neck: flexible TMD: 2fb ROM: full Dentures: upper, lower Anesthesia Pre-op A/P Labs Coagulation Test 07/07/18 09:30 Prothrombin Time 11.5 SEC (9.30-11.50) Prothromb Time International Ratio 1.1 (0.9-1.1) Activated Partial Thromboplast Time 28 SEC (23-33) Risk Assessment & Plan Assessment: asa2 Plan: mac Status Change Before Surgery: No Pre-Antibiotics Drug: Janeth Hernandez MD Jul 08, 2018 06:07
[2018-07-08] MEDS ORDERED: Midazolam 2mg/2ml Inj IVP PRN (06:15)
[2018-07-08] MEDS ORDERED: Atropine Inj 1mg/10ml Syr IV PRN (06:15)
[2018-07-08] MEDS ORDERED: DiphenhydrAMINE 50mg/ml Inj IVP PRN (06:15)
[2018-07-08] MEDS ORDERED: fentaNYL 100 mcg/2 mL IV PRN (06:15)
[2018-07-08 06:37] LABS: BASOPHILS % (AUTO) 0.8 % (0.0-2.0); EOSINOPHILS % (AUTO) 1.1 % (0.0-3.0); HEMATOCRIT 45.2 % (42.0-52.0); HEMOGLOBIN 15.6 G/DL (14.2-18.0); LYMPHOCYTES % (AUTO) 12.7 % (20.0-45.0); MEAN CORPUSCULAR VOLUME 92 FL (80-99); MONOCYTES % (AUTO) 8.2 % (1.0-10.0); NEUTROPHILS % (AUTO) 77.3 % (45.0-75.0); PLATELET COUNT 106 K/UL (150-450); RED BLOOD COUNT 4.89 M/UL (4.70-6.10); RED CELL DISTRIBUTION WIDTH 12.1 % (11.6-14.8); WHITE BLOOD COUNT 8.5 K/UL (4.8-10.8)
[2018-07-08 06:39] LABS: INR 1.1 (0.9-1.1)
--- NOTE | 2018-07-08 06:43 | General Progress Note ---
Assessment/Plan Problem List: (1) Intractable abdominal pain Assessment & Plan: due to obstructive pancreatitis, choledocholithiasis with obstruction mrcp reviewed, cbd obstruction appreciate surgery eval appreciate gi recs ERCP today NPO cont to monitor cmp pain control abx cftx ICD Codes: R10.9 - Unspecified abdominal pain SNOMED: 17814085, 152546443 (2) Pancreatitis Assessment & Plan: due to above cbd obstruction surgery following management per above MRCP Reviewed, cbd obstruction noted plan for ERCP ICD Codes: K85.90 - Acute pancreatitis without necrosis or infection, unspecified SNOMED: 89178025 Qualifiers: Qualified Codes: K85.10 - Biliary acute pancreatitis without necrosis or infection (3) Choledocholithiasis with obstruction Assessment & Plan: surg consulted appreciate recs ERCP planned per GI today abx pain control npo ICD Codes: K80.51 - Calculus of bile duct without cholangitis or cholecystitis with obstruction SNOMED: 8971576 Qualifiers: Qualified Codes: K80.51 - Calculus of bile duct without cholangitis or cholecystitis with obstruction (4) Transaminitis Assessment & Plan: due to above ICD Codes: R74.0 - Nonspecific elevation of levels of transaminase and lactic acid dehydrogenase [LDH] SNOMED: 144575216, 967989387 (5) Hx of cholecystectomy ICD Codes: Z90.49 - Acquired absence of other specified parts of digestive tract SNOMED: 95695137, 085514628 Status: stable Assessment/Plan ppx: scd diet: npo I have spent over 56 minutes regarding patient care and counseling and 33 minutes of face to face time with the patient. Subjective Allergies: Coded Allergies: No Known Allergies (Unverified , 07/06/18) Subjective f/u choledocholithiasis with obstruction, pancreatitis, intractable abd pain still having severe abd pain stable no fevers/chills nausea controlled planned for ERCP today with GI ROS: 12 point ros reviewed, negative except for the above Objective Last 24 Hour Vital Signs Date Time Temp Pulse Resp B/P (MAP) Pulse Ox O2 Delivery O2 Flow Rate FiO2 07/08/18 04:00 98.9 67 20 123/83 (96) 95 07/08/18 00:00 98.3 72 19 125/72 (89) 94 07/07/18 21:00 Room Air 07/07/18 20:00 98.5 77 18 126/78 (94) 94 07/07/18 16:00 99.0 69 18 145/89 (107) 97 07/07/18 12:00 98.2 64 21 117/72 (87) 95 07/07/18 09:00 Room Air 07/07/18 08:40 98.4 60 24 144/69 (94) 100 Intake and Output 07/07/18 07/08/18 19:00 07:00 Intake Total 1360 ml 1375 ml Balance 1360 ml 1375 ml Intake IV Total 1360 ml 1375 ml # Voids 4 Laboratory Tests 07/07/18 09:30: Prothrombin Time 11.5, Prothromb Time International Ratio 1.1, Activated Partial Thromboplast Time 28 07/08/18 05:50: Prothrombin Time 11.1, Prothromb Time International Ratio 1.1, Activated Partial Thromboplast Time 28, White Blood Count [Pending], Red Blood Count [ Pending], Hemoglobin [Pending], Hematocrit [Pending], Mean Corpuscular Volume [ Pending], Mean Corpuscular Hemoglobin [Pending], Mean Corpuscular Hemoglobin Concent [Pending], Red Cell Distribution Width [Pending], Platelet Count [ Pending], Mean Platelet Volume [Pending], Neutrophils (%) (Auto) [Pending], Lymphocytes (%) (Auto) [Pending], Monocytes (%) (Auto) [Pending], Eosinophils (% ) (Auto) [Pending], Basophils (%) (Auto) [Pending], Sodium Level [Pending], Potassium Level [Pending], Chloride Level [Pending], Carbon Dioxide Level [ Pending], Blood Urea Nitrogen [Pending], Creatinine [Pending], Estimat Glomerular Filtration Rate [Pending], Glucose Level [Pending], Calcium Level [ Pending] Height (Feet): 5 Height (Inches): 7.00 Weight (Pounds): 280 General Appearance: no apparent distress, alert EENT: PERRL/EOMI, normal ENT inspection Neck: non-tender, normal alignment, supple, normal inspection Cardiovascular: normal peripheral pulses, normal rate, regular rhythm Respiratory/Chest: chest wall non-tender, lungs clear, normal breath sounds, no respiratory distress, no accessory muscle use Abdomen: normal bowel sounds, soft, no organomegaly, no mass, tender - mild ttp palpation throughout Extremities: normal range of motion, non-tender, normal inspection 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
[2018-07-08 06:46] LABS: ANION GAP 8 mmol/L (5-15); BLOOD UREA NITROGEN 16 mg/dL (7-18); CALCIUM 8.4 MG/DL (8.5-10.1); CARBON DIOXIDE 24 MMOL/L (21-32); CHLORIDE 106 MMOL/L (98-107); POTASSIUM 3.8 MMOL/L (3.5-5.1); SODIUM 138 MMOL/L (136-145)
[2018-07-08 07:32] LABS: ALANINE AMINOTRANSFERASE 189 U/L (12-78); ALBUMIN 2.5 G/DL (3.4-5.0); ALBUMIN/GLOBULIN RATIO 0.6 (1.0-2.7); ALKALINE PHOSPHATASE 183 U/L (46-116); ANION GAP 11 mmol/L (5-15); ASPARTATE AMINO TRANSFERASE 66 U/L (15-37); BILIRUBIN,DIRECT 4.4 MG/DL (0.0-0.3); BILIRUBIN,TOTAL 5.6 MG/DL (0.2-1.0); BLOOD UREA NITROGEN 15 mg/dL (7-18); CALCIUM 8.4 MG/DL (8.5-10.1); CARBON DIOXIDE 22 MMOL/L (21-32); CHLORIDE 105 MMOL/L (98-107); POTASSIUM 3.8 MMOL/L (3.5-5.1); SODIUM 138 MMOL/L (136-145)
[2018-07-08] MEDS ORDERED: Iothalamate Meglumine 60% 30ML INJ ONE ×2 (07:35→08:03)
[2018-07-08] MEDS ORDERED: NS 500ML IVPB ONE (07:50)
--- NOTE | 2018-07-08 07:53 | Pre-Procedure Note/Attestation ---
Pre-Procedure Note/Attestation Complete Prior to Procedure Planned Procedure: not applicable Procedure Narrative: ercp Indications for Procedure Pre-Operative Diagnosis: choledocholithiasis Attestation I attest that I discussed the nature of the procedure; its benefits; risks and complications; and alternatives (and the risks and benefits of such alternatives ), prior to the procedure, with the patient (or the patient's legal scheduling representative). I attest that, if there was a reasonable possibility of needing a blood transfusion, the patient (or the patient's legal scheduling representative) was given the [facility] standardized written summary, pursuant to the Kurt Aldair Blood Safety Act ([place] Health and Safety Code # 1645, as amended). I attest that I re-evaluated the patient just prior to the surgery and that there has been no change in the patient's H&P, except as documented below: Neftali Crews MD Jul 08, 2018 07:53
--- NOTE | 2018-07-08 08:34 | Endoscopy Procedure Note ---
Endoscopy Procedure Note General Indication for Procedure: choledocholithiasis Procedures Performed: ERCP Operative Findings/Diagnosis: same Specimen: none Pt Tolerated Procedure Well: Yes Estimated Blood Loss: none Anesthesia Anesthesiologist: kaushik Anesthesia: MAC Inserted Devices Implant(s) used?: No GI Core Measures 50 yrs or older w/o bx or poly: Not Applicable 10yrs. F/U not recommended: Not Applicable Neftali Crews MD Jul 08, 2018 08:34
--- NOTE | 2018-07-08 09:40 | General Surgery Progress Note ---
General Surgery-Progress Note Subjective Additional Comments s/p ERCP. stable. labs improved Objective Last 24 Hour Vital Signs Date Time Temp Pulse Resp B/P (MAP) Pulse Ox O2 Delivery O2 Flow Rate FiO2 07/08/18 08:54 67 18 133/83 97 Room Air 07/08/18 08:49 69 18 133/85 97 Room Air 07/08/18 08:44 70 18 123/87 97 Nasal Cannula 2 07/08/18 08:39 98.1 65 18 129/83 97 Nasal Cannula 2 07/08/18 04:00 98.9 67 20 123/83 (96) 95 07/08/18 00:00 98.3 72 19 125/72 (89) 94 07/07/18 21:00 Room Air 07/07/18 20:00 98.5 77 18 126/78 (94) 94 07/07/18 16:00 99.0 69 18 145/89 (107) 97 07/07/18 12:00 98.2 64 21 117/72 (87) 95 I&O Intake and Output 07/07/18 07/08/18 18:59 06:59 Intake Total 1235 ml 1500 ml Output Total 1200 ml Balance 1235 ml 300 ml Intake IV Total 1235 ml 1500 ml Output Urine Total 1200 ml # Voids 4 Drains: none Cardiovascular: RSR Respiratory: clear Abdomen: soft, flat, non-tender, present bowel sounds Extremities: no tenderness, no cyanosis Laboratory Tests Test 07/08/18 05:50 White Blood Count 8.5 K/UL (4.8-10.8) Red Blood Count 4.89 M/UL (4.70-6.10) Hemoglobin 15.6 G/DL (14.2-18.0) Hematocrit 45.2 % (42.0-52.0) Mean Corpuscular Volume 92 FL (80-99) Mean Corpuscular Hemoglobin 31.9 PG (27.0-31.0) H Mean Corpuscular Hemoglobin Concent 34.6 G/DL (32.0-36.0) Red Cell Distribution Width 12.1 % (11.6-14.8) Platelet Count 106 K/UL (150-450) L Mean Platelet Volume 9.2 FL (6.5-10.1) Neutrophils (%) (Auto) 77.3 % (45.0-75.0) H Lymphocytes (%) (Auto) 12.7 % (20.0-45.0) L Monocytes (%) (Auto) 8.2 % (1.0-10.0) Eosinophils (%) (Auto) 1.1 % (0.0-3.0) Basophils (%) (Auto) 0.8 % (0.0-2.0) Prothrombin Time 11.1 SEC (9.30-11.50) Prothromb Time International Ratio 1.1 (0.9-1.1) Activated Partial Thromboplast Time 28 SEC (23-33) Sodium Level 138 MMOL/L (136-145) Potassium Level 3.8 MMOL/L (3.5-5.1) Chloride Level 105 MMOL/L (98-107) Carbon Dioxide Level 22 MMOL/L (21-32) Anion Gap 11 mmol/L (5-15) Blood Urea Nitrogen 15 mg/dL (7-18) Creatinine 1.0 MG/DL (0.55-1.30) Estimat Glomerular Filtration Rate > 60 mL/min (>60) Glucose Level 73 MG/DL (74-106) L Calcium Level 8.4 MG/DL (8.5-10.1) L Total Bilirubin 5.6 MG/DL (0.2-1.0) H Direct Bilirubin 4.4 MG/DL (0.0-0.3) H Aspartate Amino Transf (AST/SGOT) 66 U/L (15-37) H Alanine Aminotransferase (ALT/SGPT) 189 U/L (12-78) H Alkaline Phosphatase 183 U/L (46-116) H Total Protein 7.0 G/DL (6.4-8.2) Albumin 2.5 G/DL (3.4-5.0) L Globulin 4.5 g/dL Albumin/Globulin Ratio 0.6 (1.0-2.7) L Plan Problems: (1) Pancreatitis Assessment & Plan: likely related to possible cbd stone possible EtOH trend labs lipase normal today. resolving follow clinically (2) Intractable abdominal pain Assessment & Plan: likely pancreatitis see above okay for diet diet as tolerated d/c planning (3) Choledocholithiasis with obstruction Assessment & Plan: MRCP with 8mm impacted CBD distal stone at ampulla. GI - s/p ERCP labs noted and improved - trend labs thanks. will follow with Khai Nix Jul 08, 2018 09:40
[2018-07-08] MEDS: cefTRIAXone 1 GM in D5W 55 ML IVPB SCH (09:54)
--- NOTE | 2018-07-08 10:15 | Procedure Note ---
DATE OF PROCEDURE: 07/08/2018 SURGEON: Neftali Crews M.D. ANESTHESIOLOGIST: Dr. Freeman. PROCEDURE: ERCP, sphincterotomy, and stone removal. ANESTHESIA: Per Dr. Freeman. INSTRUMENT: Olympus adult ERCP scope. INDICATION: Choledocholithiasis. The procedure, risks, benefits, and possible consequences, including hemorrhage, aspiration, perforation and infection, and alternative treatments, were explained to the patient/legal guardian by Dr. Neftali Crews and the patient/legal guardian understood and accepted these risks. DESCRIPTION OF PROCEDURE: After informed consent was obtained and the patient was adequately sedated, the ERCP scope was advanced from the mouth into second portion of duodenum. There was multiple very shallow ulceration in the duodenum. Ampulla was seen very inflamed, possibly passage of the stone. Using a sphincterotome, common bile duct was selectively cannulated. Initial cholangiogram showed dilated common bile duct to about 1 cm with a stone of about 8 mm in the distal common bile duct. Over a guidewire, about 80% sphincterotomy was performed. There was a lot of bleeding most probably because the ampulla was very inflamed. At this point, we decided to dilate the ampulla with using a 1 cm dilator which was successful and bleeding stopped. Then using a balloon sweep, we swept the duct and removed almost 1 cm stone from distal common bile duct. The stone was yellow in color. Post stone removal, balloon occlusion cholangiogram showed no further filling defect, but given this ampulla was so inflamed most likely from recent passage of stone and given the bleeding, we decided to place the stent. A 10-Kyr[place] 7 cm stent was successfully placed in the distal common bile duct. SUMMARY OF FINDINGS: 1. Choledocholithiasis. 2. Status post ERCP, sphincterotomy, dilatation, stone removal, stent placement. RECOMMENDATIONS: Start clear liquid diet and advance as tolerated. Monitor labs. The patient will need a repeat ERCP in 6-8 weeks to remove the stent. The patient was informed that he needed to follow up with primary to be referred to GI as an outpatient to remove the stent given he might not be able to follow up with me given his insurance restriction. Neftali Jalil Crews DR: Irma JOB#: [id number] CC:
--- NOTE | 2018-07-08 11:32 | Diagnostic Imaging Report ---
. INDICATION: Pain, intraoperative TECHNIQUE: Intraoperative imaging Fluoroscopy time: 2.8 seconds Total dose: 838 dGym2 Total number of images: 6 COMPARISON: MRI, ultrasound, and CT scans dated 09/05/2017 FINDINGS: Intraoperative images demonstrate opacification of mildly dilated common bile duct. Filling defect is seen corresponding to suspected calculus described on recent imaging studies. Subsequent images demonstrate balloon inflation across the ampulla, subsequent deployment of stone extraction balloon and placement of an endobiliary stent. The gallbladder is surgically absent. IMPRESSION: Intraoperative imaging, as described
--- NOTE | 2018-07-08 13:39 | Immediate Post-Op Evaluation ---
Immediate Post-Op Evalulation Immediate Post-Op Evalulation Procedure: ercp, sphinterotomy, dilation, removal cbd stone Date of Evaluation: Jul 08, 2018 Time of Evaluation: 08:51 IV Fluids: 500ml 0.9ns Blood Products: none Estimated Blood Loss: negligible Blood Pressure Systolic: 129 Blood Pressure Diastolic: 83 Pulse Rate: 65 Respiratory Rate: 18 O2 Sat by Pulse Oximetry: 97 Temperature (Fahrenheit): 98.1 Pain Score (1-10): 0 Nausea: No Vomiting: No Complications none Patient Status: awake, reacts, patent Hydration Status: adequate Drug: Janeth Hernandez MD Jul 08, 2018 13:38
--- NOTE | 2018-07-08 13:40 | 48 Hour Post Anesthesia Eval ---
Post Anesthesia Evaluation Procedure: ercp, sphinterotomy, dilation, removal cbd stone Date of Evaluation: Jul 08, 2018 Time of Evaluation: 08:53 Blood Pressure Systolic: 123 0: 87 Pulse Rate: 65 Respiratory Rate: 18 Temperature (Fahrenheit): 98.1 O2 Sat by Pulse Oximetry: 97 Airway: patent Nausea: No Vomiting: No Pain Intensity: 0 Hydration Status: adequate Cardiopulmonary Status: stable Mental Status/LOC: patient returned to baseline Post-Anesthesia Complications: none Follow-up care needed: N/A Janeth Meade MD Jul 08, 2018 13:40
[2018-07-08] MEDS: Morphine Sulfate 2mg/ml Inj IVP PRN (17:00)
[2018-07-09] VITALS: BP 133/83
[2018-07-09] MEDS: Morphine Sulfate 2mg/ml Inj IVP PRN (00:31)
[2018-07-09 04:00] VITALS: BP 134/79
[2018-07-09 05:49] LABS: EOSINOPHILS % (AUTO) 1.3 % (0.0-3.0); HEMATOCRIT 44.3 % (42.0-52.0); HEMOGLOBIN 15.2 G/DL (14.2-18.0); LYMPHOCYTES % (AUTO) 11.1 % (20.0-45.0); MEAN CORPUSCULAR VOLUME 92 FL (80-99); MONOCYTES % (AUTO) 11.7 % (1.0-10.0); NEUTROPHILS % (AUTO) 72.9 % (45.0-75.0); PLATELET COUNT 119 K/UL (150-450); RED BLOOD COUNT 4.83 M/UL (4.70-6.10); RED CELL DISTRIBUTION WIDTH 11.4 % (11.6-14.8)
[2018-07-09 06:10] LABS: ALANINE AMINOTRANSFERASE 158 U/L (12-78); ALBUMIN 2.5 G/DL (3.4-5.0); ALBUMIN/GLOBULIN RATIO 0.5 (1.0-2.7); ALKALINE PHOSPHATASE 176 U/L (46-116); ANION GAP 10 mmol/L (5-15); ASPARTATE AMINO TRANSFERASE 62 U/L (15-37); BILIRUBIN,TOTAL 3.2 MG/DL (0.2-1.0); BLOOD UREA NITROGEN 11 mg/dL (7-18); CALCIUM 8.6 MG/DL (8.5-10.1); CARBON DIOXIDE 24 MMOL/L (21-32); CHLORIDE 105 MMOL/L (98-107); POTASSIUM 3.9 MMOL/L (3.5-5.1); SODIUM 139 MMOL/L (136-145)
[2018-07-09 06:15] LABS: BILIRUBIN,DIRECT 2.4 MG/DL (0.0-0.3)
--- NOTE | 2018-07-09 07:12 | General Progress Note ---
Assessment/Plan Problem List: (1) Intractable abdominal pain Assessment & Plan: due to obstructive pancreatitis, choledocholithiasis with obstruction mrcp reviewed, cbd obstruction s/p ercp labs trending down advance diet ICD Codes: R10.9 - Unspecified abdominal pain SNOMED: 71897199, 885237200 (2) Pancreatitis Assessment & Plan: due to above cbd obstruction surgery following management per above MRCP Reviewed, cbd obstruction noted s/p ercp lipase improved ICD Codes: K85.90 - Acute pancreatitis without necrosis or infection, unspecified SNOMED: 75108023 Qualifiers: Qualified Codes: K85.10 - Biliary acute pancreatitis without necrosis or infection (3) Choledocholithiasis with obstruction Assessment & Plan: surg consulted appreciate recs s/p ercp pain control ICD Codes: K80.51 - Calculus of bile duct without cholangitis or cholecystitis with obstruction SNOMED: 9026904 Qualifiers: Qualified Codes: K80.51 - Calculus of bile duct without cholangitis or cholecystitis with obstruction (4) Transaminitis Assessment & Plan: improving due to above ICD Codes: R74.0 - Nonspecific elevation of levels of transaminase and lactic acid dehydrogenase [LDH] SNOMED: 680851859, 111220741 (5) Hx of cholecystectomy ICD Codes: Z90.49 - Acquired absence of other specified parts of digestive tract SNOMED: 64754879, 063470808 Status: doing well, stable Assessment/Plan ppx: scd diet: advance diet I have spent over 56 minutes regarding patient care and counseling and 33 minutes of face to face time with the patient. Subjective Allergies: Coded Allergies: No Known Allergies (Unverified , 07/06/18) All Systems: reviewed and negative except above Subjective f/u choledocholithiasis with obstruction, pancreatitis, intractable abd pain mild abd pain, improving stable no fevers/chills nausea controlled s/p ERCP per GI yesterday ROS: 12 point ros reviewed, negative except for the above Objective Last 24 Hour Vital Signs Date Time Temp Pulse Resp B/P (MAP) Pulse Ox O2 Delivery O2 Flow Rate FiO2 07/09/18 04:00 98.6 59 20 134/79 (97) 98 07/09/18 01:00 98.9 07/09/18 00:00 98.2 64 18 133/83 (100) 97 07/08/18 20:37 Room Air 07/08/18 19:56 98.9 70 18 128/86 (100) 95 07/08/18 15:45 99.1 62 20 139/90 (106) 95 07/08/18 13:40 65 18 97 07/08/18 13:38 65 18 97 07/08/18 12:00 98.2 70 20 135/79 (97) 98 07/08/18 09:39 98.1 69 18 126/62 (83) 96 07/08/18 09:30 Room Air 07/08/18 08:54 67 18 133/83 97 Room Air 07/08/18 08:49 69 18 133/85 97 Room Air 07/08/18 08:44 70 18 123/87 97 Nasal Cannula 2 07/08/18 08:39 98.1 65 18 129/83 97 Nasal Cannula 2 Intake and Output 07/08/18 07/09/18 19:00 07:00 Intake Total 1625 ml 1315 ml Output Total 400 ml 1250 ml Balance 1225 ml 65 ml Intake IV Total 1625 ml 1315 ml Output Urine Total 400 ml 1250 ml Laboratory Tests 07/09/18 05:34: White Blood Count 8.0, Red Blood Count 4.83, Hemoglobin 15.2, Hematocrit 44.3, Mean Corpuscular Volume 92, Mean Corpuscular Hemoglobin 31.5H, Mean Corpuscular Hemoglobin Concent 34.3, Red Cell Distribution Width 11.4L, Platelet Count 119L , Mean Platelet Volume 10.3H, Neutrophils (%) (Auto) 72.9, Lymphocytes (%) (Auto ) 11.1L, Monocytes (%) (Auto) 11.7H, Eosinophils (%) (Auto) 1.3, Basophils (%) ( Auto) 3.0H, Sodium Level 139, Potassium Level 3.9, Chloride Level 105, Carbon Dioxide Level 24, Anion Gap 10, Blood Urea Nitrogen 11, Creatinine 1.0, Estimat Glomerular Filtration Rate > 60, Glucose Level 90, Calcium Level 8.6, Total Bilirubin 3.2H, Direct Bilirubin 2.4H, Aspartate Amino Transf (AST/SGOT) 62H, Alanine Aminotransferase (ALT/SGPT) 158H, Alkaline Phosphatase 176H, Total Protein 7.1, Albumin 2.5L, Globulin 4.6, Albumin/Globulin Ratio 0.5L Height (Feet): 5 Height (Inches): 7.00 Weight (Pounds): 280 General Appearance: no apparent distress, alert EENT: PERRL/EOMI, normal ENT inspection, TMs normal, pharynx normal Neck: non-tender, normal alignment, supple, normal inspection Cardiovascular: normal peripheral pulses, normal rate, regular rhythm Respiratory/Chest: chest wall non-tender, lungs clear, normal breath sounds, no respiratory distress, no accessory muscle use Abdomen: normal bowel sounds, non tender, soft, no organomegaly, no mass, abnormal bowel sounds Extremities: normal range of motion, non-tender, normal inspection, no calf tenderness Edema: trace edema, mild edema, moderate edema 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
[2018-07-09 08:40] VITALS: BP 130/80
[2018-07-09] MEDS: cefTRIAXone 1 GM in D5W 55 ML IVPB SCH (08:58)
--- NOTE | 2018-07-09 10:17 | General Surgery Progress Note ---
General Surgery-Progress Note Subjective Additional Comments doing well. pain resolving. no n/v/f/c. tolerating diet. ambulatory. headache Objective Last 24 Hour Vital Signs Date Time Temp Pulse Resp B/P (MAP) Pulse Ox O2 Delivery O2 Flow Rate FiO2 07/09/18 08:40 98.4 60 18 130/80 (97) 98 07/09/18 04:00 98.6 59 20 134/79 (97) 98 07/09/18 01:00 98.9 07/09/18 00:00 98.2 64 18 133/83 (100) 97 07/08/18 20:37 Room Air 07/08/18 19:56 98.9 70 18 128/86 (100) 95 07/08/18 15:45 99.1 62 20 139/90 (106) 95 07/08/18 13:40 65 18 97 07/08/18 13:38 65 18 97 07/08/18 12:00 98.2 70 20 135/79 (97) 98 I&O Intake and Output 07/08/18 07/09/18 19:00 07:00 Intake Total 1625 ml 1440 ml Output Total 400 ml 1250 ml Balance 1225 ml 190 ml Intake IV Total 1625 ml 1440 ml Output Urine Total 400 ml 1250 ml Drains: none Cardiovascular: RSR Respiratory: clear Abdomen: soft, flat, non-tender, present bowel sounds Extremities: no tenderness, no cyanosis Laboratory Tests Test 07/09/18 05:34 White Blood Count 8.0 K/UL (4.8-10.8) Red Blood Count 4.83 M/UL (4.70-6.10) Hemoglobin 15.2 G/DL (14.2-18.0) Hematocrit 44.3 % (42.0-52.0) Mean Corpuscular Volume 92 FL (80-99) Mean Corpuscular Hemoglobin 31.5 PG (27.0-31.0) H Mean Corpuscular Hemoglobin Concent 34.3 G/DL (32.0-36.0) Red Cell Distribution Width 11.4 % (11.6-14.8) L Platelet Count 119 K/UL (150-450) L Mean Platelet Volume 10.3 FL (6.5-10.1) H Neutrophils (%) (Auto) 72.9 % (45.0-75.0) Lymphocytes (%) (Auto) 11.1 % (20.0-45.0) L Monocytes (%) (Auto) 11.7 % (1.0-10.0) H Eosinophils (%) (Auto) 1.3 % (0.0-3.0) Basophils (%) (Auto) 3.0 % (0.0-2.0) H Sodium Level 139 MMOL/L (136-145) Potassium Level 3.9 MMOL/L (3.5-5.1) Chloride Level 105 MMOL/L (98-107) Carbon Dioxide Level 24 MMOL/L (21-32) Anion Gap 10 mmol/L (5-15) Blood Urea Nitrogen 11 mg/dL (7-18) Creatinine 1.0 MG/DL (0.55-1.30) Estimat Glomerular Filtration Rate > 60 mL/min (>60) Glucose Level 90 MG/DL (74-106) Calcium Level 8.6 MG/DL (8.5-10.1) Total Bilirubin 3.2 MG/DL (0.2-1.0) H Direct Bilirubin 2.4 MG/DL (0.0-0.3) H Aspartate Amino Transf (AST/SGOT) 62 U/L (15-37) H Alanine Aminotransferase (ALT/SGPT) 158 U/L (12-78) H Alkaline Phosphatase 176 U/L (46-116) H Total Protein 7.1 G/DL (6.4-8.2) Albumin 2.5 G/DL (3.4-5.0) L Globulin 4.6 g/dL Albumin/Globulin Ratio 0.5 (1.0-2.7) L Plan Problems: (1) Pancreatitis Assessment & Plan: likely related to possible cbd stone possible EtOH resolved follow clinically (2) Intractable abdominal pain Assessment & Plan: likely pancreatitis see above okay for diet diet as tolerated d/c planning (3) Choledocholithiasis with obstruction Assessment & Plan: MRCP with 8mm impacted CBD distal stone at ampulla. GI - s/p ERCP labs noted and improved - trend labs thanks. will follow with Khai Nix Jul 09, 2018 10:17
[2018-07-09 12:07] VITALS: BP 133/81
[2018-07-09 16:17] VITALS: BP 126/78
--- NOTE | 2018-07-09 17:30 | General Progress Note ---
Assessment/Plan Status: stable Assessment/Plan # Thrombocytopenia. Potential causes multifactorial, evaluate liver and viral etiologies to begin. Could also be related to underlying meds pt has received. --> Peripheral smear has been reviewed, blasts/schistocytes --> Hep panel and HIV are both negative --> US abd: Surgically absent gallbladder. Negative for dilated ducts. Note that biliary ductal dilatation described on recent CT scan is not evident sonographically. Somewhat limited exam, as described. Liver demonstrates diffusely increased echogenicity, consistent with diffuse hepatocellular disease , most likely fatty change. --> Meds have been reviewed --> Ok for ppx if plt count >50k with either heparin or lovenox --> Transfuse if plt <20k with fever, or if plt ,10k without fever. # Abd pain. Due to obstructive pancreatitis --> CT imaging done, Density in the distal common bowel duct suspicious for choledocholithiasis. --> Dr. Milian with surgery consulted by ED, following, appreciate recs --> cont to monitor cmp --> pain control # Pancreatitis. Due to above cbd obstruction --> surgery following --> management per above # Transaminitis. Due to above Calculus of bile duct without cholangitis or cholecystitis with obstruction # H/O cholecystectomy. GREATLY APPRECIATE CONSULTATION. Subjective Date patient seen: Jul 09, 2018 Allergies: Coded Allergies: No Known Allergies (Unverified , 07/06/18) All Systems: reviewed and negative except above Subjective Pt awake and alert. No acute events. Objective Last 24 Hour Vital Signs Date Time Temp Pulse Resp B/P (MAP) Pulse Ox O2 Delivery O2 Flow Rate FiO2 07/09/18 16:17 98.2 61 18 126/78 (94) 97 07/09/18 12:07 98.2 64 18 133/81 (98) 95 07/09/18 09:00 Room Air 07/09/18 08:40 98.4 60 18 130/80 (97) 98 07/09/18 04:00 98.6 59 20 134/79 (97) 98 07/09/18 01:00 98.9 07/09/18 00:00 98.2 64 18 133/83 (100) 97 07/08/18 20:37 Room Air 07/08/18 19:56 98.9 70 18 128/86 (100) 95 Intake and Output 07/08/18 07/09/18 18:59 06:59 Intake Total 1625 ml 1565 ml Output Total 400 ml 1250 ml Balance 1225 ml 315 ml Intake IV Total 1625 ml 1565 ml Output Urine Total 400 ml 1250 ml Laboratory Tests 07/09/18 05:34: White Blood Count 8.0, Red Blood Count 4.83, Hemoglobin 15.2, Hematocrit 44.3, Mean Corpuscular Volume 92, Mean Corpuscular Hemoglobin 31.5H, Mean Corpuscular Hemoglobin Concent 34.3, Red Cell Distribution Width 11.4L, Platelet Count 119L , Mean Platelet Volume 10.3H, Neutrophils (%) (Auto) 72.9, Lymphocytes (%) (Auto ) 11.1L, Monocytes (%) (Auto) 11.7H, Eosinophils (%) (Auto) 1.3, Basophils (%) ( Auto) 3.0H, Sodium Level 139, Potassium Level 3.9, Chloride Level 105, Carbon Dioxide Level 24, Anion Gap 10, Blood Urea Nitrogen 11, Creatinine 1.0, Estimat Glomerular Filtration Rate > 60, Glucose Level 90, Calcium Level 8.6, Total Bilirubin 3.2H, Direct Bilirubin 2.4H, Aspartate Amino Transf (AST/SGOT) 62H, Alanine Aminotransferase (ALT/SGPT) 158H, Alkaline Phosphatase 176H, Total Protein 7.1, Albumin 2.5L, Globulin 4.6, Albumin/Globulin Ratio 0.5L Height (Feet): 5 Height (Inches): 7.00 Weight (Pounds): 280 Objective General Appearance: alert, moderate distress HEENT: normocephalic, atraumatic, anicteric, mucous membranes moist, PERRL Neck: non-tender, normal alignment, supple, normal inspection Respiratory/Chest: chest wall non-tender, lungs clear, normal breath sounds, no respiratory distress, no accessory muscle use Cardiovascular/Chest: normal peripheral pulses, normal rate, regular rhythm Abdomen: normal bowel sounds, soft, tender - diffuse TTP Extremities: normal range of motion, non-tender, normal inspection, no calf tenderness, normal capillary refill Skin Exam: normal pigmentation, warm/dry 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
--- NOTE | 2018-07-09 18:56 | General Progress Note ---
Assessment/Plan Assessment/Plan Assessment - choledocholithiasis - s/p ERCP and stone extraction and stent Recommendations - PO diet - d/c planning - pt to f/u with Dr. Crews for Stent removal in 2 mo Subjective Allergies: Coded Allergies: No Known Allergies (Unverified , 07/06/18) Subjective Feels well no abd pain tolerating PO Objective Last 24 Hour Vital Signs Date Time Temp Pulse Resp B/P (MAP) Pulse Ox O2 Delivery O2 Flow Rate FiO2 07/09/18 16:17 98.2 61 18 126/78 (94) 97 07/09/18 12:07 98.2 64 18 133/81 (98) 95 07/09/18 09:00 Room Air 07/09/18 08:40 98.4 60 18 130/80 (97) 98 07/09/18 04:00 98.6 59 20 134/79 (97) 98 07/09/18 01:00 98.9 07/09/18 00:00 98.2 64 18 133/83 (100) 97 07/08/18 20:37 Room Air 07/08/18 19:56 98.9 70 18 128/86 (100) 95 Intake and Output 07/08/18 07/09/18 18:59 06:59 Intake Total 1625 ml 1565 ml Output Total 400 ml 1250 ml Balance 1225 ml 315 ml IV Total 1625 ml 1565 ml Output Urine Total 400 ml 1250 ml Laboratory Tests 07/09/18 05:34: White Blood Count 8.0, Red Blood Count 4.83, Hemoglobin 15.2, Hematocrit 44.3, Mean Corpuscular Volume 92, Mean Corpuscular Hemoglobin 31.5H, Mean Corpuscular Hemoglobin Concent 34.3, Red Cell Distribution Width 11.4L, Platelet Count 119L , Mean Platelet Volume 10.3H, Neutrophils (%) (Auto) 72.9, Lymphocytes (%) (Auto ) 11.1L, Monocytes (%) (Auto) 11.7H, Eosinophils (%) (Auto) 1.3, Basophils (%) ( Auto) 3.0H, Sodium Level 139, Potassium Level 3.9, Chloride Level 105, Carbon Dioxide Level 24, Anion Gap 10, Blood Urea Nitrogen 11, Creatinine 1.0, Estimat Glomerular Filtration Rate > 60, Glucose Level 90, Calcium Level 8.6, Total Bilirubin 3.2H, Direct Bilirubin 2.4H, Aspartate Amino Transf (AST/SGOT) 62H, Alanine Aminotransferase (ALT/SGPT) 158H, Alkaline Phosphatase 176H, Total Protein 7.1, Albumin 2.5L, Globulin 4.6, Albumin/Globulin Ratio 0.5L Height (Feet): 5 Height (Inches): 7.00 Weight (Pounds): 280 Objective WDWN NCAT supple CTA RRR abd soft NT ND no edema nonfocal Kenneth Galan MD Jul 09, 2018 18:56
[2018-07-09 20:00] VITALS: BP 131/86
[2018-07-10] VITALS: BP 93/50
[2018-07-10 00:15] VITALS: BP 110/63
[2018-07-10 04:00] VITALS: BP 132/77
[2018-07-10 06:13] LABS: BASOPHILS % (AUTO) 1.1 % (0.0-2.0); EOSINOPHILS % (AUTO) 1.9 % (0.0-3.0); HEMATOCRIT 45.2 % (42.0-52.0); HEMOGLOBIN 15.9 G/DL (14.2-18.0); LYMPHOCYTES % (AUTO) 25.4 % (20.0-45.0); MEAN CORPUSCULAR VOLUME 92 FL (80-99); MONOCYTES % (AUTO) 10.3 % (1.0-10.0); NEUTROPHILS % (AUTO) 61.3 % (45.0-75.0); PLATELET COUNT 138 K/UL (150-450); RED BLOOD COUNT 4.92 M/UL (4.70-6.10); RED CELL DISTRIBUTION WIDTH 11.5 % (11.6-14.8); WHITE BLOOD COUNT 7.2 K/UL (4.8-10.8)
[2018-07-10 06:34] LABS: ALANINE AMINOTRANSFERASE 176 U/L (12-78); ALBUMIN 2.6 G/DL (3.4-5.0); ALBUMIN/GLOBULIN RATIO 0.5 (1.0-2.7); ALKALINE PHOSPHATASE 186 U/L (46-116); ANION GAP 8 mmol/L (5-15); ASPARTATE AMINO TRANSFERASE 109 U/L (15-37); BILIRUBIN,TOTAL 2.2 MG/DL (0.2-1.0); BLOOD UREA NITROGEN 13 mg/dL (7-18); CALCIUM 8.6 MG/DL (8.5-10.1); CARBON DIOXIDE 26 MMOL/L (21-32); CHLORIDE 105 MMOL/L (98-107); POTASSIUM 3.9 MMOL/L (3.5-5.1); SODIUM 139 MMOL/L (136-145)
[2018-07-10 06:43] LABS: BILIRUBIN,DIRECT 1.4 MG/DL (0.0-0.3)
[2018-07-10 08:00] VITALS: BP 128/80
[2018-07-10] MEDS: cefTRIAXone 1 GM in D5W 55 ML IVPB SCH (09:14)
--- NOTE | 2018-07-10 11:34 | General Surgery Progress Note ---
General Surgery-Progress Note Subjective Symptoms: improved, pain absent, tolerating diet, passing flatus, BM Additional Comments doing well. no acute events. no n/v/f/c. Objective Last 24 Hour Vital Signs Date Time Temp Pulse Resp B/P (MAP) Pulse Ox O2 Delivery O2 Flow Rate FiO2 07/10/18 09:00 Room Air 07/10/18 08:00 98.1 73 18 128/80 (96) 96 07/10/18 04:39 98.7 07/10/18 04:00 98.7 56 20 132/77 (95) 97 07/10/18 00:15 110/63 (79) 07/10/18 00:00 98.6 57 20 93/50 (64) 94 07/09/18 20:54 Room Air 07/09/18 20:00 98.9 71 18 131/86 (101) 94 07/09/18 16:17 98.2 61 18 126/78 (94) 97 07/09/18 12:07 98.2 64 18 133/81 (98) 95 I&O Intake and Output 07/09/18 07/10/18 19:00 07:00 Intake Total 1460 ml 1850 ml Output Total 500 ml 1300 ml Balance 960 ml 550 ml Intake Oral 960 ml 600 ml IV Total 500 ml 1250 ml Output Urine Total 500 ml 1300 ml Drains: none Cardiovascular: RSR Respiratory: clear Abdomen: soft, flat, non-tender, present bowel sounds Extremities: no edema, no tenderness, no cyanosis Laboratory Tests Test 07/10/18 05:25 White Blood Count 7.2 K/UL (4.8-10.8) Red Blood Count 4.92 M/UL (4.70-6.10) Hemoglobin 15.9 G/DL (14.2-18.0) Hematocrit 45.2 % (42.0-52.0) Mean Corpuscular Volume 92 FL (80-99) Mean Corpuscular Hemoglobin 32.4 PG (27.0-31.0) H Mean Corpuscular Hemoglobin Concent 35.2 G/DL (32.0-36.0) Red Cell Distribution Width 11.5 % (11.6-14.8) L Platelet Count 138 K/UL (150-450) L Mean Platelet Volume 10.0 FL (6.5-10.1) Neutrophils (%) (Auto) 61.3 % (45.0-75.0) Lymphocytes (%) (Auto) 25.4 % (20.0-45.0) Monocytes (%) (Auto) 10.3 % (1.0-10.0) H Eosinophils (%) (Auto) 1.9 % (0.0-3.0) Basophils (%) (Auto) 1.1 % (0.0-2.0) Sodium Level 139 MMOL/L (136-145) Potassium Level 3.9 MMOL/L (3.5-5.1) Chloride Level 105 MMOL/L (98-107) Carbon Dioxide Level 26 MMOL/L (21-32) Anion Gap 8 mmol/L (5-15) Blood Urea Nitrogen 13 mg/dL (7-18) Creatinine 1.0 MG/DL (0.55-1.30) Estimat Glomerular Filtration Rate > 60 mL/min (>60) Glucose Level 88 MG/DL (74-106) Calcium Level 8.6 MG/DL (8.5-10.1) Total Bilirubin 2.2 MG/DL (0.2-1.0) H Direct Bilirubin 1.4 MG/DL (0.0-0.3) H Aspartate Amino Transf (AST/SGOT) 109 U/L (15-37) H Alanine Aminotransferase (ALT/SGPT) 176 U/L (12-78) H Alkaline Phosphatase 186 U/L (46-116) H Total Protein 7.6 G/DL (6.4-8.2) Albumin 2.6 G/DL (3.4-5.0) L Globulin 5.0 g/dL Albumin/Globulin Ratio 0.5 (1.0-2.7) L Plan Problems: (1) Pancreatitis Assessment & Plan: likely related to possible cbd stone possible EtOH resolved follow clinically (2) Intractable abdominal pain Assessment & Plan: likely pancreatitis see above jesse for diet diet as tolerated d/c planning (3) Choledocholithiasis with obstruction Assessment & Plan: MRCP with 8mm impacted CBD distal stone at ampulla. GI - s/p ERCP labs noted and improved needs CBD stent removed in 3 months as per GI okay to d/c home thanks. will follow with Khai Nix Jul 10, 2018 11:34
--- NOTE | 2018-07-10 11:58 | Discharge Summary ---
Discharge Summary Hospital Course Date of Admission Jul 06, 2018 at 04:24 Date of Discharge 07/10/18 Admitting Diagnosis Pancreatitis HPI Ang Dunlap is a 52 year old male who was admitted on Jul 06, 2018 at 04 :24 for Pancreatitis Hospital Course mrcp reviewed, cbd obstruction, choledocholithiasis s/p ERCP and stone extraction and stent patient stable improved asymptomatic denies any complaints now dc home f/u with pcp and gi outpt Physical Exam: General Appearance: no apparent distress, alert EENT: PERRL/EOMI, normal ENT inspection, TMs normal, pharynx normal Neck: non-tender, normal alignment, supple, normal inspection Cardiovascular: normal peripheral pulses, normal rate, regular rhythm Respiratory/Chest: chest wall non-tender, lungs clear, normal breath sounds, no respiratory distress, no accessory muscle use Abdomen: normal bowel sounds, non tender, soft, no organomegaly, no mass, abnormal bowel sounds Extremities: normal range of motion, non-tender, normal inspection, no calf tenderness Edema: trace edema, mild edema, moderate edema 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 stable for dc Discharge Condition Upon Discharge: stable Discharge Disposition Patient was discharged to home Discharge Diagnoses: (1) Pancreatitis (2) Choledocholithiasis with obstruction (3) Transaminitis (4) Intractable abdominal pain Gerri Cardenas MD Jul 10, 2018 11:58
[2018-07-10 12:00] VITALS: BP 130/81
--- NOTE | 2018-07-10 14:49 | General Progress Note ---
Assessment/Plan Status: stable Assessment/Plan # Thrombocytopenia. Most likely related to underlying liver disease. --> Plt count is trending upwards --> Peripheral smear has been reviewed, no blasts/schistocytes --> Hep panel and HIV are both negative --> US abd: Surgically absent gallbladder. Negative for dilated ducts. Note that biliary ductal dilatation described on recent CT scan is not evident sonographically. Somewhat limited exam, as described. Liver demonstrates diffusely increased echogenicity, consistent with diffuse hepatocellular disease , most likely fatty change. --> Meds have been reviewed --> Ok for ppx if plt count >50k with either heparin or lovenox --> Transfuse if plt <20k with fever, or if plt ,10k without fever. # Abd pain. Due to obstructive pancreatitis --> CT imaging done, Density in the distal common bowel duct suspicious for choledocholithiasis. --> Dr. Milian with surgery consulted by ED, following, appreciate recs --> cont to monitor cmp --> pain control # Pancreatitis. Due to above cbd obstruction --> surgery following --> management per above # Transaminitis. Due to above Calculus of bile duct without cholangitis or cholecystitis with obstruction # H/O cholecystectomy. GREATLY APPRECIATE CONSULTATION. Subjective Date patient seen: Jul 10, 2018 Allergies: Coded Allergies: No Known Allergies (Unverified , 07/06/18) All Systems: reviewed and negative except above Subjective Pt awake and alert. No acute events. DC planning. Objective Last 24 Hour Vital Signs Date Time Temp Pulse Resp B/P (MAP) Pulse Ox O2 Delivery O2 Flow Rate FiO2 07/10/18 12:00 97.0 68 18 130/81 (97) 95 07/10/18 09:00 Room Air 07/10/18 08:00 98.1 73 18 128/80 (96) 96 07/10/18 04:39 98.7 07/10/18 04:00 98.7 56 20 132/77 (95) 97 07/10/18 00:15 110/63 (79) 07/10/18 00:00 98.6 57 20 93/50 (64) 94 07/09/18 20:54 Room Air 07/09/18 20:00 98.9 71 18 131/86 (101) 94 07/09/18 16:17 98.2 61 18 126/78 (94) 97 Intake and Output 07/09/18 07/10/18 19:00 07:00 Intake Total 1460 ml 1975 ml Output Total 500 ml 1300 ml Balance 960 ml 675 ml Intake Oral 960 ml 600 ml IV Total 500 ml 1375 ml Output Urine Total 500 ml 1300 ml Laboratory Tests 07/10/18 05:25: White Blood Count 7.2, Red Blood Count 4.92, Hemoglobin 15.9, Hematocrit 45.2, Mean Corpuscular Volume 92, Mean Corpuscular Hemoglobin 32.4H, Mean Corpuscular Hemoglobin Concent 35.2, Red Cell Distribution Width 11.5L, Platelet Count 138L , Mean Platelet Volume 10.0, Neutrophils (%) (Auto) 61.3, Lymphocytes (%) (Auto ) 25.4, Monocytes (%) (Auto) 10.3H, Eosinophils (%) (Auto) 1.9, Basophils (%) ( Auto) 1.1, Sodium Level 139, Potassium Level 3.9, Chloride Level 105, Carbon Dioxide Level 26, Anion Gap 8, Blood Urea Nitrogen 13, Creatinine 1.0, Estimat Glomerular Filtration Rate > 60, Glucose Level 88, Calcium Level 8.6, Total Bilirubin 2.2H, Direct Bilirubin 1.4H, Aspartate Amino Transf (AST/SGOT) 109H, Alanine Aminotransferase (ALT/SGPT) 176H, Alkaline Phosphatase 186H, Total Protein 7.6, Albumin 2.6L, Globulin 5.0, Albumin/Globulin Ratio 0.5L Height (Feet): 5 Height (Inches): 7.00 Weight (Pounds): 280 General Appearance: no apparent distress, alert Objective General Appearance: alert, moderate distress HEENT: normocephalic, atraumatic, anicteric, mucous membranes moist, PERRL Neck: non-tender, normal alignment, supple, normal inspection Respiratory/Chest: chest wall non-tender, lungs clear, normal breath sounds, no respiratory distress, no accessory muscle use Cardiovascular/Chest: normal peripheral pulses, normal rate, regular rhythm Abdomen: normal bowel sounds, soft, tender - diffuse TTP Extremities: normal range of motion, non-tender, normal inspection, no calf tenderness, normal capillary refill Skin Exam: normal pigmentation, warm/dry 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
--- NOTE | 2018-07-10 20:09 | General Progress Note ---
Assessment/Plan Assessment/Plan Assessment - choledocholithiasis - s/p ERCP and stone extraction and stent Recommendations - PO diet - d/c planning Subjective Allergies: Coded Allergies: No Known Allergies (Unverified , 07/06/18) Subjective Feels well no abd pain tolerating PO seen with indian speaking RN advised he has stent and has to see his Medical PMD to get outpt referral to Medical GI to get stent removed in 2 mo Objective Last 24 Hour Vital Signs Date Time Temp Pulse Resp B/P (MAP) Pulse Ox O2 Delivery O2 Flow Rate FiO2 07/10/18 12:00 97.0 68 18 130/81 (97) 95 07/10/18 09:00 Room Air 07/10/18 08:00 98.1 73 18 128/80 (96) 96 07/10/18 04:39 98.7 07/10/18 04:00 98.7 56 20 132/77 (95) 97 07/10/18 00:15 110/63 (79) 07/10/18 00:00 98.6 57 20 93/50 (64) 94 07/09/18 20:54 Room Air Intake and Output 07/09/18 07/10/18 18:59 06:59 Intake Total 1335 ml 1975 ml Output Total 500 ml 1300 ml Balance 835 ml 675 ml Intake Oral 960 ml 600 ml IV Total 375 ml 1375 ml Output Urine Total 500 ml 1300 ml Laboratory Tests 07/10/18 05:25: White Blood Count 7.2, Red Blood Count 4.92, Hemoglobin 15.9, Hematocrit 45.2, Mean Corpuscular Volume 92, Mean Corpuscular Hemoglobin 32.4H, Mean Corpuscular Hemoglobin Concent 35.2, Red Cell Distribution Width 11.5L, Platelet Count 138L , Mean Platelet Volume 10.0, Neutrophils (%) (Auto) 61.3, Lymphocytes (%) (Auto ) 25.4, Monocytes (%) (Auto) 10.3H, Eosinophils (%) (Auto) 1.9, Basophils (%) ( Auto) 1.1, Sodium Level 139, Potassium Level 3.9, Chloride Level 105, Carbon Dioxide Level 26, Anion Gap 8, Blood Urea Nitrogen 13, Creatinine 1.0, Estimat Glomerular Filtration Rate > 60, Glucose Level 88, Calcium Level 8.6, Total Bilirubin 2.2H, Direct Bilirubin 1.4H, Aspartate Amino Transf (AST/SGOT) 109H, Alanine Aminotransferase (ALT/SGPT) 176H, Alkaline Phosphatase 186H, Total Protein 7.6, Albumin 2.6L, Globulin 5.0, Albumin/Globulin Ratio 0.5L Height (Feet): 5 Height (Inches): 7.00 Weight (Pounds): 280 Objective WDWN NCAT supple CTA RRR abd soft NT ND no edema nonfocal Kenneth Galan MD Jul 10, 2018 20:09
== END 2018-07-10 15:30 | disposition home or self-care (01) ==
LOC: EDUNIT# 03:16 → EDBD 03:16 → EMR 03:30 → 4E 04:24 → EDBEDREQ 04:34
PROC: 0FC98ZZ Extirpation of Matter from Common Bile Duct, Via Natural or Artificial Opening Endoscopic (ICD-10-PCS; principal; 2018-07-08 08:03)
PROC: 0F798DZ Dilation of Common Bile Duct with Intraluminal Device, Via Natural or Artificial Opening Endoscopic (ICD-10-PCS; 2018-07-08 08:03)
PROC: BF101ZZ Fluoroscopy of Bile Ducts using Low Osmolar Contrast (ICD-10-PCS; 2018-07-08 08:03)
DX: K80.51 Calculus of bile duct without cholangitis or cholecystitis with obstruction (principal); K85.90 Acute pancreatitis without necrosis or infection, unspecified; D69.6 Thrombocytopenia, unspecified; R74.0 Nonspecific elevation of levels of transaminase and lactic acid dehydrogenase [LDH]; Z98.890 Other specified postprocedural states
CPT/HCPCS: 36415; 71045; 74176; 74181; 74328; 76000; 76700; 80048; 80053; 81003; 82248; 83690; 85025; 85610; 85730; 86703; 86705; 86709; 86803; 87340; 94003; 94150; 96361; 96374; 96375; 96376; 99285; J2405